=== PATIENT | female | born 1960 | race Caucasian/White ===

== ENCOUNTER 2017-06-02 05:44 | Emergency (ER) | payer OTHER, SELFPAY ==
[2017-06-02 05:45] VITALS: BP 181/119; PULSE 91; RESP 20; TEMP 36.7; O2SAT 97; BMI 49.6
--- NOTE | 2017-06-02 05:54 | RAD_ITS ---
STUDY: X-RAY - LEFT ANKLE REASON FOR EXAM: Female, 56 years old. Twisted ankle TECHNIQUE: 3 view(s) of the ankle. COMPARISON: None. FINDINGS: There is a small plantar calcaneal spur. No fractures or dislocations are seen. There is mild swelling of the ankle especially around the lateral malleolus. The ankle mortise and the subtalar joints are normal. RAD/Ankle min 3 Views IMPRESSION: All swelling about the ankle especially around the lateral malleolus. No fractures Electronically Signed: Jacinto Ludwig, at 6:44 EST Tel , Service support ,
[2017-06-02] MEDS: Ibuprofen 400 MG Tablet 800 MG PO (05:58)
--- NOTE | 2017-06-02 06:04 | ED.DCSUM_ITS ---
- ER Visit Summary Date of Service: 06/02/17 Chief Complaint: [] Left ankle injury History of Present Illness: The patient is a 56 F [] patient tripped on a step and rolled her ankle earlier today. She is having pain in the left ankle only. No home treatment. No previous injury. Physical Examination: Vital signs reviewed General: Well-nourished well-developed Head: Normocephalic atraumatic Eyes: Pupils equal round and reactive to light extraocular movements intact ENT: TMs clear no hemotympanum no trauma Neck: Nontender full range of motion Cardiovascular: Regular rate rhythm no murmurs normal S1-S2 Respiratory: No distress clear to auscultation bilaterally chest nontender Abdomen: Soft nontender nondistended normal bowel sounds no masses Back: Nontender no CVA tenderness Extremities: Palpation left lateral malleolus. Soft tissue swelling noted. Decreased range of motion secondary to pain. Skin: Normal color no trauma Neuro alert oriented cranial nerves II through XII intact normal strength sensation reflexes Test Results: [] Emergency Department Course and Treatment: [] She given ice pack and Motrin. X- ray obtained. Negative for fracture. At this time patient sprained her ankle. She has crutches at home. Given an Aircast. Will follow-up as an outpatient. Treatment Plan: [] Disposition: [] Impression: [] Left ankle sprain status post fall This note was generated with [employer] dictation software. It may contain incorrect words, spelling, and punctuation that were not noted in review of the chart prior to signing ED Disposition - Plan for ED Patient: Chief Complaint: Lower Extremity Injury Referrals: Rob Mcclure MD [Primary Care Provider] -
--- NOTE | 2017-06-02 06:22 | ED.DEP ---
ED Disposition - Plan for ED Patient: Disposition: Home or Assisted Living Chief Complaint: Lower Extremity Injury Instructions: ED Sprain Ankle W X Ray Referrals: Rob Mcclure MD [Primary Care Provider] -
[2017-06-02 06:35] VITALS: RESP 16
== END 2017-06-02 06:36 | disposition home or self-care (01) ==
PROVIDERS: Emergency Provider Emergency Medicine; Family Provider Family Medicine; PCP Family Medicine
DX: S93.402A Sprain of unspecified ligament of left ankle, initial encounter (principal); E66.9 Obesity, unspecified; E11.9 Type 2 diabetes mellitus without complications; I10 Essential (primary) hypertension; Z79.84 Long term (current) use of oral hypoglycemic drugs; Z79.899 Other long term (current) drug therapy; W18.40XA Slipping, tripping and stumbling without falling, unspecified, initial encounter; Y93.01 Activity, walking, marching and hiking; Y92.89 Other specified places as the place of occurrence of the external cause; Y99.8 Other external cause status
CPT/HCPCS: 73610; 99283

== ENCOUNTER → 2022-12-21 | Outpatient (CLI) | payer OTHER, SELFPAY | END | disposition home or self-care (01) | LOC: SL 12:50 | PROVIDERS: PCP Family Medicine; Visit Provider Physician Assistant | DX: G47.10 Hypersomnia, unspecified (principal) | CPT/HCPCS: 95806 ==

== ENCOUNTER → 2023-03-08 | Outpatient (CLI) | payer OTHER, SELFPAY | END | disposition home or self-care (01) | LOC: SL 13:47 | PROVIDERS: PCP Family Medicine; Visit Provider Physician Assistant | DX: Z00.00 Encounter for general adult medical examination without abnormal findings (principal) ==

== ENCOUNTER → 2023-04-07 | Outpatient (CLI) | payer OTHER, SELFPAY | END | disposition home or self-care (01) | LOC: SL 09:17 | PROVIDERS: PCP Family Medicine; Visit Provider Physician Assistant | DX: Z00.00 Encounter for general adult medical examination without abnormal findings (principal) ==

== ENCOUNTER 2024-06-26 08:51 | Inpatient (IN) | payer BC, SELFPAY ==
[2024-06-26] VITALS (18 sets, daily range): BP systolic 116–150; BP diastolic 58–98; PULSE 64–109; RESP 16–20; TEMP 35.6–37.1; O2SAT 73–100; BMI 46.2
--- NOTE | 2024-06-26 09:13 | CT_ITS ---
PROCEDURE: ABDOMEN/PELVIS W IV CONT ONLY REASON FOR EXAM: 4 day history of right lower quadrant pain. Nausea. TECHNIQUE: Abdomen and pelvis CT with intravenous contrast. IV CONTRAST: COMPARISON: None. FINDINGS: Coronary artery calcification. Lung bases: Calcified right hilar lymph nodes. Right lower lobe infiltrate. Liver: Fatty infiltration of the liver. Gallbladder: Unremarkable. Spleen: Calcified splenic granulomas. Pancreas: Unremarkable. Adrenals: Unremarkable. Kidneys: Unremarkable. Bladder: Unremarkable. Reproductive Organs: Unremarkable. Bowel: Unremarkable. Appendix: The appendix appears distended with a surrounding inflammatory process. Findings present are consistent with appendicitis. No evidence of abscess. Lymph nodes: No suspicious lymph node enlargement. Vasculature: Mild diffuse atherosclerotic calcifications are noted. Peritoneum / Retroperitoneum: No ascites. No free air. Bones: Degenerative changes of the spine. CT/Abdomen/Pelvis W IV Cont ONLY IMPRESSION: Findings in keeping with acute appendicitis. The results were communicated to the referring physician in the ER. Right lower lobe infiltration. One or more dose reduction techniques were used (e.g., Automated exposure contr ol, adjustment of the mA and/or kV according to patient size, use of iterative reconstruction technique). Reading Location: [facility]
--- NOTE | 2024-06-26 09:13 | ED.VIS.GI ---
HPI HPI - GI History of Present Illness Chief Complaint: Abd Pain Narrative Narrative: 63-year-old female past medical history of diabetes, hypertension presents with abdominal pain and right flank pain that she has had since Tuesday of last week, approximately 5 days ago. No prior abdominal surgeries. No fevers or chills but she has had nauseated without vomiting. No diarrhea, no dysuria or hematuria. No true exacerbating or alleviating factors. She states that she awoke on Tuesday morning in the middle the night feeling slightly chilled without rigors which resolved. She developed some right sided abdominal pain over the last few days. She took Tylenol/ibuprofen with mild relief of symptoms, but her pain has returned and is stronger today. Is mainly located on her right side, she states that radiates upwards and may be a little towards the front. [facility] Home Medications ?Medication ?Instructions ?Recorded ?Last Taken ?Type amlodipine 5 mg tablet 5 mg PO DAILY 06/02/17 06/25/24 History atorvastatin 20 mg tablet 20 mg PO QHS cholesterol 06/26/24 06/25/24 History hydrochlorothiazide 25 mg tablet 25 mg PO DAILY 06/26/24 06/25/24 History losartan 100 mg tablet 100 mg PO DAILY 06/26/24 06/25/24 History metformin 500 mg tablet,extended 500 mg PO BID 06/26/24 06/25/24 History release 24 hr varenicline tartrate 1 mg tablet 1 mg PO BID 06/26/24 Unknown History Allergy/AdvReac Type Severity Reaction Status Date / Time aspirin Allergy Shortness Verified 06/26/24 08:52 of breath Penicillins Allergy Rash Verified 06/26/24 08:52 Social History Smoking Status: Current every day smoker tobacco type: cigarettes ROS ROS ED ROS Narrative Constitutional: No fever, no chills currently. HEENT: No sore throat. No neck pain. No loss of vision. No rhinorrhea. Cardiovascular: No chest pain. No palpitations. No pedal edema. Respiratory: No cough, no shortness of breath. Abdominal: Right sided flank pain/right lower quadrant abdominal pain. Positive nausea. No vomiting. No problems with bowel movements. Genitourinary: No dysuria. No hematuria. Musculoskeletal: No myalgias. No arthralgias. EXAM Physical Exam Narrative Exam Narrative: Afebrile. Vital signs noted. Nontoxic-appearing. Positive dry mouth/dry mucous membranes cardiovascular examination reveals a mild tachycardia. Lungs are clear to auscultation bilaterally. Abdomen is soft with mild tenderness to palpation in the right lower quadrant. No epigastric or right upper quadrant tenderness, no rebound or guarding. Negative heel strike. Negative Rovsing sign. Neurological examination is nonfocal and nonlateralizing. Const Vital Signs: 06/26/24 08:51 06/26/24 10:51 06/26/24 12:17 Temperature 96.1 F L 98.7 F Temperature Source Temporal Temporal Pulse Rate 109 H 64 97 Respiratory Rate 20 H 18 16 Blood Pressure 140/87 H 138/78 H 116/96 H Blood Pressure Mean 104 98 102 Blood Pressure Source Blood Pressure Position Blood Pressure Location Pulse Ox 98 98 97 Oxygen Delivery Method Room Air Room Air Room Air 06/26/24 12:46 Temperature 98.4 F Temperature Source Oral Pulse Rate 97 Respiratory Rate 16 Blood Pressure 121/64 H Blood Pressure Mean 83 Blood Pressure Source Monitor Blood Pressure Position Semi-Fowlers Blood Pressure Location Right Arm Pulse Ox 96 Oxygen Delivery Method Room Air MDM MDM MDM Narrative Medical decision making narrative: Differential diagnosis includes but not limited to acute appendicitis versus ovarian cyst/ovarian pathology versus diverticulitis versus ureterolithiasis versus pyelonephritis. History and physical does not support diverticulitis or ureterolithiasis or pyelonephritis. I did offer her narcotic pain medication, but she declined currently. I do feel CT imaging is indicated. She will be bolused normal saline 1 L intravenously. I reviewed her laboratory work that has returned thus far. She has slight leukocytosis of 11.6. Hemoglobin normal at 12.2. I received a call from the radiologist and discussed the findings with him. She has an acute appendicitis without perforation or abscess. At this point in time, she was administered morphine and ondansetron for analgesia. Additionally, as she has an allergy to penicillin she was started on ciprofloxacin and Flagyl after discussion with Dr. Alba with general surgery. Disposition is admit to the OR. Patient is in stable condition. I did discuss the patient with Dr. Alba. Patient will need to be admitted to the medical surgical floor prior to her trip to the OR. Additionally, I did review her urinalysis and she has positive for WBCs and nitrites. Although she may have a UTI, she has already received ciprofloxacin intravenously. Disposition remains admitted in stable condition. History & Record Review Discussion w/independent historian: Patient Lab Data Attestation: I reviewed the patient's lab results. Labs: Laboratory Results - last 24 hr 06/26/24 06/26/24 06/26/24 09:25 09:25 09:25 WBC 11.6 H RBC 4.06 L Hgb 12.2 Hct 36.6 L MCV 90.1 MCH 30.0 MCHC 33.3 RDW Std Deviation 42.3 RDW Coeff of Tamie 12.9 Plt Count 385 MPV 10.7 Immature Gran % (Auto) 0.900 Neut % (Auto) 76.5 H Lymph % (Auto) 10.2 L [place] % (Auto) 11.2 H Eos % (Auto) 0.8 Baso % (Auto) 0.4 Absolute Neuts (auto) 8.9 H Absolute Lymphs (auto) 1.18 Nucleated RBC % 0 Sodium Cancelled Potassium Cancelled Chloride Cancelled Carbon Dioxide Cancelled Anion Gap Cancelled BUN Cancelled 22 H Creatinine Cancelled 1.0 Estim Creat Clear Calc Cancelled Est GFR (MDRD) Af Amer Est GFR (MDRD) Non-Af BUN/Creatinine Ratio Glucose Calcium Total Bilirubin AST ALT Alkaline Phosphatase Total Protein Albumin Globulin Albumin/Globulin Ratio Lipase Urine Color Urine Clarity Urine pH Ur Specific [place] Urine Protein Urine Glucose (UA) Urine Ketones Urine Occult Blood Urine Nitrite Urine Bilirubin Urine Urobilinogen Ur Leukocyte Esterase Urine RBC Urine WBC Ur Squamous Epith Cells Urine Bacteria Urine Mucus 06/26/24 06/26/24 06/26/24 09:25 09:25 09:25 WBC RBC Hgb Hct MCV MCH MCHC RDW Std Deviation RDW Coeff of Tamie Plt Count MPV Immature Gran % (Auto) Neut % (Auto) Lymph % (Auto) [place] % (Auto) Eos % (Auto) Baso % (Auto) Absolute Neuts (auto) Absolute Lymphs (auto) Nucleated RBC % Sodium Potassium Chloride Carbon Dioxide Anion Gap BUN Creatinine Estim Creat Clear Calc 65.49 Est GFR (MDRD) Af Amer Cancelled Est GFR (MDRD) Non-Af Cancelled 64 BUN/Creatinine Ratio Cancelled 22.0 H Glucose Cancelled Calcium Total Bilirubin AST ALT Alkaline Phosphatase Total Protein Albumin Globulin Albumin/Globulin Ratio Lipase Urine Color Urine Clarity Urine pH Ur Specific [place] Urine Protein Urine Glucose (UA) Urine Ketones Urine Occult Blood Urine Nitrite Urine Bilirubin Urine Urobilinogen Ur Leukocyte Esterase Urine RBC Urine WBC Ur Squamous Epith Cells Urine Bacteria Urine Mucus 06/26/24 06/26/24 06/26/24 09: 09: 09:25 WBC RBC Hgb Hct MCV MCH MCHC RDW Std Deviation RDW Coeff of Tamie Plt Count MPV Immature Gran % (Auto) Neut % (Auto) Lymph % (Auto) [place] % (Auto) Eos % (Auto) Baso % (Auto) Absolute Neuts (auto) Absolute Lymphs (auto) Nucleated RBC % Sodium Potassium Chloride Carbon Dioxide Anion Gap BUN Creatinine Estim Creat Clear Calc Est GFR (MDRD) Af Amer Est GFR (MDRD) Non-Af BUN/Creatinine Ratio Glucose 171 H Calcium Cancelled Total Bilirubin Cancelled 0.33 AST Cancelled 21 ALT Cancelled Alkaline Phosphatase Total Protein Albumin Globulin Albumin/Globulin Ratio Lipase Urine Color Urine Clarity Urine pH Ur Specific [place] Urine Protein Urine Glucose (UA) Urine Ketones Urine Occult Blood Urine Nitrite Urine Bilirubin Urine Urobilinogen Ur Leukocyte Esterase Urine RBC Urine WBC Ur Squamous Epith Cells Urine Bacteria Urine Mucus 06/26/24 06/26/24 06/26/24 09:25 09:25 09:25 WBC RBC Hgb Hct MCV MCH MCHC RDW Std Deviation RDW Coeff of Tamie Plt Count MPV Immature Gran % (Auto) Neut % (Auto) Lymph % (Auto) [place] % (Auto) Eos % (Auto) Baso % (Auto) Absolute Neuts (auto) Absolute Lymphs (auto) Nucleated RBC % Sodium Potassium Chloride Carbon Dioxide Anion Gap BUN Creatinine Estim Creat Clear Calc Est GFR (MDRD) Af Amer Est GFR (MDRD) Non-Af BUN/Creatinine Ratio Glucose Calcium Total Bilirubin AST ALT 19 Alkaline Phosphatase Cancelled 104 Total Protein Cancelled 7.8 Albumin Cancelled Globulin Albumin/Globulin Ratio Lipase Urine Color Urine Clarity Urine pH Ur Specific [place] Urine Protein Urine Glucose (UA) Urine Ketones Urine Occult Blood Urine Nitrite Urine Bilirubin Urine Urobilinogen Ur Leukocyte Esterase Urine RBC Urine WBC Ur Squamous Epith Cells Urine Bacteria Urine Mucus 06/26/24 06/26/24 06/26/24 09:25 09:25 09:25 WBC RBC Hgb Hct MCV MCH MCHC RDW Std Deviation RDW Coeff of Tamie Plt Count MPV Immature Gran % (Auto) Neut % (Auto) Lymph % (Auto) [place] % (Auto) Eos % (Auto) Baso % (Auto) Absolute Neuts (auto) Absolute Lymphs (auto) Nucleated RBC % Sodium Potassium Chloride Carbon Dioxide Anion Gap BUN Creatinine Estim Creat Clear Calc Est GFR (MDRD) Af Amer Est GFR (MDRD) Non-Af BUN/Creatinine Ratio Glucose Calcium Total Bilirubin AST ALT Alkaline Phosphatase Total Protein Albumin 3.7 Globulin Cancelled 4.1 Albumin/Globulin Ratio Cancelled 0.9 Lipase Cancelled Urine Color Urine Clarity Urine pH Ur Specific [place] Urine Protein Urine Glucose (UA) Urine Ketones Urine Occult Blood Urine Nitrite Urine Bilirubin Urine Urobilinogen Ur Leukocyte Esterase Urine RBC Urine WBC Ur Squamous Epith Cells Urine Bacteria Urine Mucus 06/26/24 10:30 WBC RBC Hgb Hct MCV MCH MCHC RDW Std Deviation RDW Coeff of Tamie Plt Count MPV Immature Gran % (Auto) Neut % (Auto) Lymph % (Auto) [place] % (Auto) Eos % (Auto) Baso % (Auto) Absolute Neuts (auto) Absolute Lymphs (auto) Nucleated RBC % Sodium Potassium Chloride Carbon Dioxide Anion Gap BUN Creatinine Estim Creat Clear Calc Est GFR (MDRD) Af Amer Est GFR (MDRD) Non-Af BUN/Creatinine Ratio Glucose Calcium Total Bilirubin AST ALT Alkaline Phosphatase Total Protein Albumin Globulin Albumin/Globulin Ratio Lipase Urine Color Straw Urine Clarity Sl. Cloudy Urine pH 7.0 Ur Specific [place] 1.005 Urine Protein 15 H Urine Glucose (UA) Normal Urine Ketones Negative Urine Occult Blood 25 H Urine Nitrite Positive H Urine Bilirubin Negative Urine Urobilinogen Normal Ur Leukocyte Esterase 500 H Urine RBC 0-5 SEEN Urine WBC 25-50 SEEN Ur Squamous Epith Cells 0-5 SEEN Urine Bacteria 2+ Urine Mucus 0 SEEN Radiography Diagnostic Testing: Clinical Impression(s) from Imaging Studies Abdomen/Pelvis CT 06/26/24 09:13 IMPRESSION: Findings in keeping with acute appendicitis. The results were communicated to the referring physician in the ER. Right lower lobe infiltration. One or more dose reduction techniques were used (e.g., Automated exposure control, adjustment of the mA and/or kV according to patient size, use of iterative reconstruction technique). Reading Location: [id number] Discharge Plan Dx/Rx/DC Orders Clinical Impression: Acute appendicitis, Right lower quadrant abdominal pain, Diabetes, Hypertension, UTI (urinary tract infection) Disposition Disposition: Acute Care Hospital [facility]
[2024-06-26] MEDS: 0.9% Normal Saline (1000mL) 1,000 ML 999 ML IV ×2 (09:35→10:46)
[2024-06-26 09:42] LABS: Absolute Lymphocyte Count 1.18 X10^3/uL (0.83-4.51); Absolute Neutrophil Count 8.9 X10^3/uL (2.0-7.7); Basophil# 0.05 X10^3/uL; Basophil% 0.4 % (0-1); Eosinophil# 0.09 X10^3/uL; Eosinophils% 0.8 % (0-5); Hematocrit 36.6 % (37-47); Hemoglobin 12.2 g/dL (12.0-15.0); Lymphocyte # 1.18 X10^3/ul (0.83-4.51); Lymphocyte % 10.2 % (19-41); Mean Corp Hgb Conc 33.3 g/dL (32-36); Mean Corpuscular Volume 90.1 fL (81-99); Mean Platelet Vol. 10.7 fl (6.2-12.0); Monocyte% 11.2 % (0-10); NRBC Flagged by Analyzer 0 % (0-5); Neutrophil # 8.85 X10^3/uL (2.7-7.7); Neutrophil % 76.5 % (47-70); Platelet Count 385 K/mm3 (150-450); RBC Distribution Width CV 12.9 % (11.6-14.6); RBC Distribution Width SD 42.3 fl (35.1-43.9); Red Blood Count 4.06 M/mm3 (4.2-5.4); White Blood Count 11.6 K/mm3 (4.4-11.0)
[2024-06-26] MEDS: Ondansetron 4 MG/2 ML Vial IV (10:45)
--- NOTE | 2024-06-26 10:45 | ED.RN ---
patient states unable to give urine sample.
[2024-06-26] MEDS: Morphine 4 MG/ML Syringe IV ×2 (10:46→12:43)
--- NOTE | 2024-06-26 10:54 | PCM.HP.STD ---
HPI - General General Date of Service: 06/26/24 HPI Narrative AMARJIT HANNA, is a 63 F who presents to the ER due to right lower quadrant pain. Patient states she has had pain since Tuesday however was able to take Advil and go to work on Tuesday and Tuesday. Patient states that on Tuesday the pain did get worse. Patient last ate at 1 AM had half of a hamburger. Patient had some nausea denies any vomiting. Patient CT abdomen pelvis consistent with acute appendicitis. Patient's never had any previous abdominal surgeries. COUNT INCLUDES THE [facility] Home Medications ?Medication ?Instructions ?Recorded ?Last Taken ?Type amlodipine 5 mg tablet 5 mg PO DAILY 06/02/17 06/25/24 History atorvastatin 20 mg tablet 20 mg PO QHS cholesterol 06/26/24 06/25/24 History hydrochlorothiazide 25 mg tablet 25 mg PO DAILY 06/26/24 06/25/24 History losartan 100 mg tablet 100 mg PO DAILY 06/26/24 06/25/24 History metformin 500 mg tablet,extended 500 mg PO BID 06/26/24 06/25/24 History release 24 hr varenicline tartrate 1 mg tablet 1 mg PO BID 06/26/24 Unknown History Allergy/AdvReac Type Severity Reaction Status Date / Time aspirin Allergy Shortness Verified 06/26/24 08:52 of breath Penicillins Allergy Rash Verified 06/26/24 08:52 Social History Smoking Status: Current every day smoker tobacco type: cigarettes Vital Signs Vital Signs Vital Signs: 06/26/24 08:51 06/26/24 10:51 Temperature 96.1 F L 98.7 F Temperature Source Temporal Temporal Pulse Rate 109 H 64 Respiratory Rate 20 H 18 Blood Pressure 140/87 H 138/78 H Blood Pressure Mean 104 98 Pulse Ox 98 98 Oxygen Delivery Method Room Air Room Air Weight Weight: 236 lb 8.896 oz Body Mass Index (BMI) 46.2 Physical Exam Const alert, oriented x3 and no apparent distress HEENT normocephalic and head/scalp atraumatic Resp normal respiratory effort Cardio regular rate GI soft to palpation; Negative for non-distended Palpation: tender RLQ; Negative for guarding Extremity no clubbing, cyanosis or edema Neuro CN's II-XII intact bilaterally Psych mental status grossly normal Results Lab / Micro Data 06/26/24 09:25 06/26/24 09:25 Labs: Laboratory Results - last 24 hr 06/26/24 09:25: WBC 11.6 H, RBC 4.06 L, Hgb 12.2, Hct 36.6 L, MCV 90.1, MCH 30.0, MCHC 33.3, RDW Std Deviation 42.3, RDW Coeff of Tamie 12.9, Plt Count 385, MPV 10.7, Immature Gran % (Auto) 0.900, Neut % (Auto) 76.5 H, Lymph % (Auto) 10.2 L, [place] % (Auto) 11.2 H, Eos % (Auto) 0.8, Baso % (Auto) 0.4, Absolute Neuts (auto) 8.9 H, Absolute Lymphs (auto) 1.18, Nucleated RBC % 0 Imaging Radiology Impression Abdomen/Pelvis CT 06/26/24 09:13 IMPRESSION: Findings in keeping with acute appendicitis. The results were communicated to the referring physician in the ER. Right lower lobe infiltration. One or more dose reduction techniques were used (e.g., Automated exposure control, adjustment of the mA and/or kV according to patient size, use of iterative reconstruction technique). Reading Location: [id number] Assessment & Plan Assessment/Plan (1) Acute appendicitis: PLAN: Plan 1. Discussed procedure laparoscopic appendectomy, possible open along with the risk but not limited to bleeding, infection/abscess, injury to another organ (small bowel, colon, etc.), adhesion, hernia at incision sites, and anesthesia. Patient no further question this time. Ingrid Alba M.D. Pager: [phone] [facility] [address] [place] [address], [address] [place] [address] Office: [phone]
[2024-06-26] MEDS: metroNIDAZOLE 500 MG/100 ML BAG 100 MG IV ×2 (11:10→19:07)
--- NOTE | 2024-06-26 11:26 | CASEMGMT ---
Addendum entered by Terra Ramos 06/26/24 19:13: Admitting diagnosis: appendicitis Other diagnosis history: diabetes, hypertension SHARDA Rios, SYED Original Note: Care Management Face to Face with patient for initial transition planning/care coordination assessment in the ED. This software writer introduced self and role at [facility]. Patient alert and oriented. Patient willing to participate in assessment and is able to answer all questions appropriately. Care providers, pharmacy, and demographics verified. Admitting Diagnosis: Other diagnosis history: PCP: Rob Mcclure Specialists: none Preferred Pharmacy: [facility] Insurance: [employer] Prescription Benefit: yes Living Will/HPOA: none, but would like to complete during admission. LNOK: [id number], Malena ( , no kids) Living Arrangements: patient lives alone in a ranch-style home, 1 step to enter, independent with all ADLs Transportation: patient drives DME: none HHC: none SNF/Rehab: none Community Resources: none Patient goals: Patient wishes to discharge home, denies need for home health care at this time. Patient denies any further needs or concerns at this time. Disposition Plan: admission to acute; RN CM/SW to follow for discharge planning needs that may arise. SHARDA Rios, SYED
[2024-06-26 12:19] LABS: Mucous, Urine 0 SEEN /hpf (<or=2+)
[2024-06-26 12:24] LABS: Color, Urine Straw (Yellow); Glucose, Dipstick Normal (Normal); Ketone-Dipstick Negative (Negative); Leukocyte Esterase-Dipstick 500 /ul (Negative); Nitrite-Dipstick Positive (Negative); Occult Blood-Urine 25 /ul (Negative); Protein-Dipstick 15 mg/dl (Negative); Specific Gravity, Urine 1.005 (1.002-1.030); Urine Bilirubin Dipstick Negative (Negative); Urine Clarity Sl. Cloudy (Clear); Urine Urobilinogen Normal (Normal)
[2024-06-26 12:27] LABS: Albumin, Serum 3.7 g/dL (3.4-4.8); EST Glomerular Filtration Rate 64 (>60); Estimated Creatinine Clearance 65.49 ml/min; Protein, Total 7.8 g/dL (5.9-8.4)
[2024-06-26] MEDS: Ciprofloxacin 400 MG/200 ML BAG 200 MG IV ×2 (12:29→22:14)
[2024-06-26 12:30] LABS: Bacteria 2+ /hpf (None Seen); Squamous Epithelial Cells - UA 0-5 SEEN /hpf (5-10); White Blood Cells 25-50 SEEN /hpf (0-5)
[2024-06-26 12:31] LABS: Red Blood Cells-Urine 0-5 SEEN /hpf (0-5)
[2024-06-26 12:50] LABS: ALB/GLOB Ratio 0.9 RATIO (0.9-2.4)
--- NOTE | 2024-06-26 13:43 | PCM.PRE.AN2 ---
ASA Classification* ASA Classification ASA Classification: 3 Assessment & Plan Anesthesia* Anesthesia Assessment Anesthesia Assessment: Discussed sedation and/or anesthesia options, risks, benefits, and alternatives with patient/parents/legal guardian/POA. Questions invited. The patient/parents/legal guardian/POA seems to understand and agrees to proceed with anesthesia plan. Reviewed the physical assessment, medical history, allergy history and patient home medications list prior to surgery/procedure/anesthetic and documented any changes. Performed airway and anesthesia risk assessments. Anesthesia Type Anesthesia Type: General History Source History Obtained from:: Patient and Chart Anesthesia Focused Assessment* Temperature: 98.4 F Pulse Rate: 97 Blood Pressure: 122/98 Respiratory Rate: 16 Pulse Ox: 94 Oxygen Delivery Method: Room Air Airway Assessment Mouth opens: >3 cm Mallampati Score: II Teeth Condition: Dentures (Full upper dentures are out.) and Partial (Lower partial is out.) Neck Range of motion (ROM): Limited ROM (somewhat decreased extension) Focused Labs Anesthesia Preop lab: CBC WBC 11.6 K/mm3 (4.4-11.0) H 06/26/24 09:25 06/26/24 RBC 4.06 M/mm3 (4.2-5.4) L 06/26/24 09:25 06/26/24 Hgb 12.2 g/dL (12.0-15.0) 06/26/24 09:25 06/26/24 Hct 36.6 % (37-47) L 06/26/24 09:25 06/26/24 Plt Count 385 K/mm3 (150-450) 06/26/24 09:25 06/26/24 CHEMISTRY Potassium 3.8 mmol/L (3.5-5.1) 03/08/12 17:20 03/08/12 Sodium 137 mmol/L (136-145) 03/08/12 17:20 03/08/12 BUN 22 mg/dL (4-19) H 06/26/24 09:25 06/26/24 Creatinine 1.0 mg/dL (0.6-1.0) 06/26/24 09:25 06/26/24 Glucose 171 mg/dL (70-99) H 06/26/24 09:25 06/26/24 COAG Pre-Assessment Diagnosis/Proposed Procedure Planned Operative Procedure(s): Laparoscopic appendectomy. Anesthesia History Anesthesia History - medical policy specialist: Anesthesia History - medical policy specialist Hx Hospitalization Any Problems With Anesthesia No 06/26/24 12:46 Cholinesterase deficiency You/Your Family Experience fever (hyperthermia) with Relationship Recent Exposure to Contagious Disease Does patient have nerve No 06/26/24 12:46 stimulator Patient instructed to have device shut off --Does patient have Pacemaker or ICD? When Was Last Pacemaker Check QUESTION #4 FULL TEXT: You/Your Family Experience fever (hyperthermia) with Anesthesia Last Oral Intake Last Oral intake: Last Oral Intake NPO since 08:00 06/26/24 12:46 Meds taken in AM with sips of water? Meds patient instructed to take am of surgery Any additional information?: Yes NPO since: 08:00 (Patient had diet Coke 8 AM.) PONV PONV - medical policy specialist: PONV - medical policy specialist Female HX of Motion Sickness HX of N/V After Surgery Non-Smoker Duration of Surgery greater than 60 minutes Number of Risk Factors PONV Score Height & Weight Height & Weight: Anesthesia: Height & Weight Height 5 ft 06/26/24 12:46 Weight: 107.3 kg 06/26/24 12:46 Body Mass Index (BMI) 46.2 06/26/24 12:46 Respiratory Assessment Respiratory Assessment - medical policy specialist: Respiratory Tract Infection Hx - medical policy specialist Hx Respiratory Tract Infection Any additional information?: Yes Hx Respiratory Tract Infection: Yes (had viral infection about 2 weeks ago. Has been clear for about a week.) STOP Sleep Apnea STOP Sleep Apnea - medical policy specialist: STOP Sleep Apnea - medical policy specialist Hx Hypertension Yes 06/26/24 12:46 Hx Sleep Apnea Yes 06/26/24 12:46 CPAP Yes 06/26/24 12:46 BIPAP No 06/26/24 12:46 Do you snore loudly (louder than talking or can be heard Do you often feel tired/ fatigued/ sleepy during daytime? Has anyone observed you stop breathing during sleep? STOP Results Positive 06/26/24 12:46 QUESTION #5 FULL TEXT : Do you snore loudly (louder than talking or can be heard through closed doors)? Tobacco Use History Tobacco Use History - medical policy specialist: Tobacco Use History - medical policy specialist Tobacco Use Cigarettes 09/15/22 13:07 Smoking Status Current every day smoker 06/26/24 09:00 Hx Tobacco Use Yes 06/02/17 05:47 Years Smoking Packs Smoked per Day Smoking Cessation Date was within the last 15 years Hx Smoking Cessation Date Hx Smoking Cessation Counseling Any additional information?: Yes Smoking Status: Current every day smoker (Patient smoked today.) Hematologic Medial History Hematologic Hx - medical policy specialist: Hematologic Medical Hx - loan documentation specialist Hx of Blood Transfusion Hx of Transfusion in last 3 Months Date of Last Transfusion (if within last 3 months) Ever experience any problems with transfusion(s)? Specify any problems Hx of Preganancy in last 3 Months Nurse Filling Out Transfusion & Questions: Date: Time: Patient unable to answer at this time (ie. confused, unrespo /Reproduction History /Reproductive History - medical policy specialist: /Reproductive Hx- medical policy specialist Hx Now Gestational Age (in weeks): EDC: Hx Hx Para Hx Section SAB PFSH Home Medications ?Medication ?Instructions ?Recorded ?Last Taken ?Type amlodipine 5 mg tablet 5 mg PO DAILY 06/02/17 06/25/24 History atorvastatin 20 mg tablet 20 mg PO QHS cholesterol 06/26/24 06/25/24 History hydrochlorothiazide 25 mg tablet 25 mg PO DAILY 06/26/24 06/25/24 History losartan 100 mg tablet 100 mg PO DAILY 06/26/24 06/25/24 History metformin 500 mg tablet,extended 500 mg PO BID 06/26/24 06/25/24 History release 24 hr varenicline tartrate 1 mg tablet 1 mg PO BID 06/26/24 Unknown History Allergy/AdvReac Type Severity Reaction Status Date / Time aspirin Allergy Shortness Verified 06/26/24 08:52 of breath Penicillins Allergy Rash Verified 06/26/24 08:52 Surgical History (Updated 06/26/24 @ 13:[address] Juni Jurado MD) History of tonsillectomy Social History Smoking Status: Current every day smoker tobacco type: cigarettes Review of Systems (Anesthesia) ROS Narrative System reviewed and no additional complaints, except as documented.
[2024-06-26] MEDS: Bupiv/Epi 0.25% 30 ML Vial (15:49)
--- NOTE | 2024-06-26 15:54 | PCM.OPRPT ---
Operative Report (Standard) Operative Information Date of Procedure: 06/26/24 Pre-Operative Diagnosis: Acute appendicitis Post-Operative Diagnosis: Perforated acute appendicitis Surgery/Procedure Performed: Laparoscopic appendectomy cook sauce: Yes Registrar Nurses' Registry: Sergio Priest Tasks completed by mailroom assistant: Closing and Retracting Additional expanded duty dental assistant?: No Type of Anesthesia: General/Supplemental RN Documented Start/Stop Times: Operation Date: 06/26/24 16:20 Case Time Into Pre-Op 06/26/24 13:17 Anesthesia Start 06/26/24 14:02 Into Room 06/26/24 14:02 Procedure Start 06/26/24 14:22 Procedure End 06/26/24 16:00 Anesthesia End 06/26/24 16:09 Out of Room 06/26/24 16:09 Into Recovery 06/26/24 16:12 Out of Recovery 06/26/24 17:01 Into Phase II Recovery Procedure Start Time: 14:22 Procedure Stop Time: 16:00 Select all DRAINS/GRAFTS/IMPLANTS that apply: Drains Drain details: 15 Icelandic round KELLY Special Medications: Cipro/Flagyl IV for acute appendicitis Estimated Blood Loss: 20 cc Specimen collected: Yes Description of specimen(s) removed: appendix Description of surgery: Indications: 63-year-old female presented to the ER with new right lower quadrant pain this morning. On workup she was found to have acute appendicitis on CT and a leukocytosis of 11.5. Patient was started on antibiotics in the ER for acute appendicitis-Cipro 40 mg IV x 1 and Flagyl 500 mg IV x 1 Description of the procedure: The patient was placed on operating table in supine position. General anesthesia was induced. A timeout was completed verifying correct patient, procedure, position and special equipment prior to beginning procedure. Abdomen was prepped and draped in usual sterile fashion. Incision was made in the natural skin line above the umbilicus with a 15 blade scalpel. The fascia was elevated and incised. Entry into the peritoneum was confirmed visually and no bowel was noted in the vicinity of the incision. The Petersen trocar was placed under direct vision. Abdomen insufflated with a pressure of 12-15 mmHg. Patient tolerated insertion well. The scope was inserted and the abdomen inspected. No injuries from initial trocar placement were noted. Minimal amount of fluid was seen in the right lower quadrant. An direct visualization 2 -5 mm trocars were placed one above the symphysis pubis and below the hairline and one in the left lower quadrant lateral to the rectus muscle. Care is taken to avoid injury to the bladder and inferior epigastric vessels. The table was placed in Trendelenburg position with the right side elevated. There are density stones in the right lower quadrant with inflammation extending to the abdominal wall. Careful blunt dissection showed some purulent fluid which was suctioned and sent for culture. Additional 5 mm trocars placed in the right upper quadrant. After carefully terminal ileum from cecum/appendix. Was able to find the appendix and follow it down to its tip. This was followed back up to the base of the cecum. Enseal was used to divide the mesoappendix. The appendix was grasped with atraumatic grasper and elevated. It was noted to be inflamed with purulent drainage. A window was developed in the mesoappendix at the point between the base of the appendix and the cecum. An endoscopic 45 mm linear cutting stapler blue load was then used to divide and staple the base of the appendix. The appendix was withdrawn into the Petersen trocar after being placed endoscopically retrieval bag. Appendix was sent to pathology. The appendiceal stump was then irrigated and hemostasis was assured. Fluid was suctioned no other pathology was identified. 15 Icelandic round KELLY was placed into the pelvis coursing to the right lower quadrant. Secondary trochars were removed under direct visualization. No bleeding was noted trocar sites. The laparoscope withdrawn and the umbilical trocar removed. The abdomen was allowed to collapse. Local anesthesia of 30 mL of 0.25% Marcaine was used at the incision sites. The umbilical trocar site was closed with the [id number] 0 Vicryl suture. The skin was closed using sutures of 4-0 Monocryl and Steri-Strips. The patient was extubated. The patient tolerated the procedure well and was taken to the postanesthesia care unit in satisfactory condition. Surgical Findings: Acute perforated appendicitis Complications Complications: No
[2024-06-26 15:56] LABS: Calcium,Total 9.3 mg/dL (7.6-11.0); Potassium 3.6 mmol/L (3.5-5.1); Sodium Level 130 mmol/L (136-145)
[2024-06-26 15:57] LABS: Anion Gap 17 (5-15); Carbon Dioxide 23.4 mmol/L (21.0-32.0); Chloride 90 mmol/L (98-107)
[2024-06-26 16:00] LABS: AST(SGOT) 22 U/L (<=31); Alanine Aminotransfer ALT/SGPT 21 U/L (<=34); Alkaline Phosphatase 102 U/L (35-104); BUN 23 mg/dL (4-19); BUN/Creat Ratio 22.6 RATIO (10-20); Globulin 4.2 g/dL (2.2-4.2); Glucose 164 mg/dL (70-99); Total Bilirubin 0.29 mg/dL (0.00-1.30)
--- NOTE | 2024-06-26 16:16 | PCM.POST.ANE ---
Anesthesia: Postop Eval I Current Vital Signs Temperature: 97 F Pulse Rate: 88 Blood Pressure: 132/64 Respiratory Rate: 16 Pulse Ox: 100 Oxygen Delivery Method: Room Air Assessment Airway patent: Yes Spontaneous unlabored respirations: Yes Mental status: Awake and Calm nausea: No Vomiting: No Anesthesia Complication: No Fluid Hydration Crystalloid volume administer (ml): 1,000 Total IV fluid infused: 1,000 Progress Note Anesthesia document: Postop Eval 1 completed: Yes
--- NOTE | 2024-06-26 16:30 | APP_PTH ---
PATIENT: AMARJIT HANNA LOC: MS3 U#:[id number] AGE/SX: 63/F ROOM: [facility] [place] RE06/28/[address]: Dr. Ingrid Alba MD : 1960 BED: 1 DIS: 07/01/2024 SPEC #: [id number] RECD: 06/26/24 17:03 STATUS: SHANNA KIRBY #: [id number] JANELL: 06/26/24 16:[address]: Ingrid Alba DEPT: SURGICAL PATHOLOGY RECD BY: Richard Bejarano ENTERED: 06/27/24 08:39 SP TYPE: APPENDIX OTHR DR: Dr. Rob Mcclure MD Tissues: Appendix, NOS Procedures: Surgery Specimen Level III HEADER OPERATION: Laparoscopic appendectomy PRE-OP DIAGNOSIS: Acute appendicitis TISSUE SUBMITTED: Appendix MICROSCOPIC DIAGNOSIS Appendix, appendectomy: Acute appendicitis and periappendicitis. See mariana. 06/28/2024 COMMENT This case has been reviewed in consultation with Dr. Hunt who concurs with the above diagnosis. IDC:[id number] MICROSCOPIC DESCRIPTION Slides are reviewed. GROSS DESCRIPTION Received in fixative is one container labeled with the patient's name and designated appendix. The specimen consists of an appendix measuring 5.5 cm in length and up to 0.8 cm in diameter. The attached periappendiceal adipose tissue measures up to 1.7 cm in width. The serosa is congested. No obvious perforation is identified. The lumen is almost completely obliterated. No fecalith is identified. Traffic Operations Engineer sections are submitted in one cassette. / SJ: 06/27/2024 TC:2 CPT: [id number]
--- NOTE | 2024-06-26 19:03 | POSTOPAN2_ITS ---
Anesthesia Postop Eval I Sum Postop Eval Completion status Anesthesia document: Postop Eval 1 completed: Yes Anesthesia Postop Eval I Summary Anesthesia Postop Eval I Summary: Anesthesia Postop Eval I: Assessment Summary Airway patent Yes 06/26/24 16:16 MANUFACTURER'S SERVICE REPRESENTATIVE.[email or web address] Spontaneous unlabored Yes 06/26/24 16:16 MANUFACTURER'S SERVICE REPRESENTATIVE.[email or web address] respirations Mental status Awake,Calm 06/26/24 16:16 MANUFACTURER'S SERVICE REPRESENTATIVE.[email or web address] nausea No 06/26/24 16:16 MANUFACTURER'S SERVICE REPRESENTATIVE.[email or web address] Vomiting No 06/26/24 16:16 MANUFACTURER'S SERVICE REPRESENTATIVE.[email or web address] Anesthesia Postop Eval I: Fluid Summary Crystalloid volume administer 1,000 06/26/24 16:16 MANUFACTURER'S SERVICE REPRESENTATIVE.[email or web address] (ml) Colloids volume administered ( ml) Blood Product volume administered (ml) Total IV fluid infused 1,000 06/26/24 16:16 MANUFACTURER'S SERVICE REPRESENTATIVE.[email or web address] Anesthesia Postop Eval I: Summary Notes Anesthesia Complication No 06/26/24 16:16 MANUFACTURER'S SERVICE REPRESENTATIVE.[email or web address] Anesthesia Complication Comment: Post-operative progress note Anesthesia: Postop Eval II Evaluation Mental status: Awake and Calm Pain Level: 1 nausea: No Vomiting: No Complications Anesthesia Complication: No
--- NOTE | 2024-06-26 19:03 | PCM.POSTANE2 ---
Anesthesia Postop Eval I Sum Postop Eval Completion status Anesthesia document: Postop Eval 1 completed: Yes Anesthesia Postop Eval I Summary Anesthesia Postop Eval I Summary: Anesthesia Postop Eval I: Assessment Summary Airway patent Yes 06/26/24 16:16 FIBER HEEL PIECE SHAPER.[email or web address] Spontaneous unlabored Yes 06/26/24 16:16 FIBER HEEL PIECE SHAPER.[email or web address] respirations Mental status Awake,Calm 06/26/24 16:16 FIBER HEEL PIECE SHAPER.[email or web address] nausea No 06/26/24 16:16 FIBER HEEL PIECE SHAPER.[email or web address] Vomiting No 06/26/24 16:16 FIBER HEEL PIECE SHAPER.[email or web address] Anesthesia Postop Eval I: Fluid Summary Crystalloid volume administer 1,000 06/26/24 16:16 FIBER HEEL PIECE SHAPER.[email or web address] (ml) Colloids volume administered ( ml) Blood Product volume administered (ml) Total IV fluid infused 1,000 06/26/24 16:16 FIBER HEEL PIECE SHAPER.[email or web address] Anesthesia Postop Eval I: Summary Notes Anesthesia Complication No 06/26/24 16:16 FIBER HEEL PIECE SHAPER.[email or web address] Anesthesia Complication Comment: Post-operative progress note Anesthesia: Postop Eval II Evaluation Mental status: Awake and Calm Pain Level: 1 nausea: No Vomiting: No Complications Anesthesia Complication: No
[2024-06-26 19:30] LABS: Bedside Glucose 172 mg/dL (74-106)
[2024-06-26] MEDS: Acetaminophen 325 MG Tablet 650 MG PO (20:02)
[2024-06-26] MEDS: Insulin Lispro 100 UNIT/ML INSULN.PEN SC (22:13)
[2024-06-26] MEDS: Atorvastatin Calcium 20 MG Tablet PO (22:14)
[2024-06-26 22:33] LABS: Bedside Glucose 266 mg/dL (74-106)
[2024-06-27] VITALS (8 sets, daily range): BP systolic 111–140; BP diastolic 56–77; PULSE 78–96; RESP 16–20; TEMP 36.6–37.1; O2SAT 86–100
--- NOTE | 2024-06-27 03:18 | NURSING ---
Pt walked in the dubose with the material combiner.
[2024-06-27] MEDS: metroNIDAZOLE 500 MG/100 ML BAG 100 MG IV ×3 (06:11→22:11)
[2024-06-27] MEDS: Acetaminophen 325 MG Tablet 650 MG PO ×2 (06:14→16:42)
[2024-06-27 06:49] LABS: Bedside Glucose 144 mg/dL (74-106)
[2024-06-27 07:44] LABS: Absolute Lymphocyte Count 1.29 X10^3/uL (0.83-4.51); Absolute Neutrophil Count 11.2 X10^3/uL (2.0-7.7); Basophil# 0.03 X10^3/uL; Basophil% 0.2 % (0-1); Hematocrit 32.5 % (37-47); Hemoglobin 10.3 g/dL (12.0-15.0); Lymphocyte # 1.29 X10^3/ul (0.83-4.51); Mean Corp Hgb Conc 31.7 g/dL (32-36); Mean Corpuscular Hgb 29.2 pg (27.0-32.0); Mean Corpuscular Volume 92.1 fL (81-99); Mean Platelet Vol. 10.9 fl (6.2-12.0); Monocyte% 11.9 % (0-10); NRBC Flagged by Analyzer 0 % (0-5); Neutrophil % 78.2 % (47-70); POSITIVE DIFFERENTIAL YES; Platelet Count 303 K/mm3 (150-450); RBC Distribution Width CV 13.2 % (11.6-14.6); RBC Distribution Width SD 44.4 fl (35.1-43.9); Red Blood Count 3.53 M/mm3 (4.2-5.4); White Blood Count 14.3 K/mm3 (4.4-11.0)
[2024-06-27 07:56] LABS: Differential Indicated SCAN CRITERIA MET
--- NOTE | 2024-06-27 08:21 | PN.SURG_ITS ---
Subjective Subjective Patient evaluated resting comfortably in bed. She denies any abdominal pain, nausea, vomiting. She denies any flatus. She is tolerating clear liquids. She notes difficulty with urination and had to be straight cathed x 2 over night. She did have incontinence of urine this morning. She notes her other concern is her residual wheezing and shortness of breath from a recent viral infection 2 weeks ago. She is currently on O2, however not on oxygen at home. Objective Data Objective Data Vital Signs: Vital Signs Temp Pulse Resp BP Pulse Ox O2 Del Method O2 Flow Rate 98.1 F 78 18 111/71 97 Room Air 3 06/27/24 05:47 06/27/24 05:47 06/27/24 05:47 06/27/24 05:47 06/27/24 05:47 06/27/24 05:47 06/26/24 22:08 Oxygen Flow Rate (L/min) 3 Oxygen Delivery Method Room Air Weight: 236 lb 8.896 oz Body Mass Index (BMI) 46.2 Intake & Output: Intake and Output for Last 24 Hours 06/25/24 06/26/24 06/27/24 23:59 23:59 23:59 Intake Total 3000 / 3000 400 / 400 Output Total 530 / 530 570 / 570 Balance 2470 / 2470 -170 / -170 Lab / Micro Data 06/27/24 07:00 06/27/24 07:00 Labs: Laboratory Results - last 24 hr 06/26/24 09:25: WBC 11.6 H, RBC 4.06 L, Hgb 12.2, Hct 36.6 L, MCV 90.1, MCH 30.0, MCHC 33.3, RDW Std Deviation 42.3, RDW Coeff of Tamie 12.9, Plt Count 385, MPV 10.7, Immature Gran % (Auto) 0.900, Neut % (Auto) 76.5 H, Lymph % (Auto) 10.2 L, [place] % (Auto) 11.2 H, Eos % (Auto) 0.8, Baso % (Auto) 0.4, Absolute Neuts (auto) 8.9 H, Absolute Lymphs (auto) 1.18, Nucleated RBC % 0, Sodium Cancelled 06/26/24 09:25: Sodium 130 L, Potassium Cancelled 06/26/24 09:25: Potassium 3.6, Chloride Cancelled 02/25/25 09:25: Chloride 90 L, Carbon Dioxide Cancelled 06/26/24 09:25: Carbon Dioxide 23.4, Anion Gap Cancelled 06/26/24 09:25: Anion Gap 17 H, BUN Cancelled 06/26/24 09:25: BUN 23 H, Creatinine Cancelled 06/26/24 09:25: Creatinine 1.0, Estim Creat Clear Calc Cancelled 06/26/24 09:25: Estim Creat Clear Calc 65.49, Est GFR (MDRD) Af Amer Cancelled, Est GFR (MDRD) Non-Af Cancelled 06/26/24 09:25: Est GFR (MDRD) Non-Af 64, BUN/Creatinine Ratio Cancelled 06/26/24 09:25: BUN/Creatinine Ratio 22.6 H, Glucose Cancelled 06/26/24 09:25: Glucose 164 H, Calcium Cancelled 06/26/24 09:25: Calcium 9.3, Total Bilirubin Cancelled 06/26/24 09:25: Total Bilirubin 0.29, AST Cancelled 06/26/24 09:25: AST 22, ALT Cancelled 06/26/24 09:25: ALT 21, Alkaline Phosphatase Cancelled 06/26/24 09:25: Alkaline Phosphatase 102, C-React Prot Ext Range 173.00 H, Total Protein Cancelled 06/26/24 09:25: Total Protein 7.8, Albumin Cancelled 06/26/24 09:25: Albumin 3.7, Globulin Cancelled 06/26/24 09:25: Globulin 4.2, Albumin/Globulin Ratio Cancelled 06/26/24 09:25: Albumin/Globulin Ratio 0.9, Lipase Cancelled 06/26/24 10:30: Urine Color Straw, Urine Clarity Sl. Cloudy, Urine pH 7.0, Ur Specific Warren 1.005, Urine Protein 15 H, Urine Glucose (UA) Normal, Urine Ketones Negative, Urine Occult Blood 25 H, Urine Nitrite Positive H, Urine Bilirubin Negative, Urine Urobilinogen Normal, Ur Leukocyte Esterase 500 H, Urine RBC 0-5 SEEN, Urine WBC 25-50 SEEN, Ur Squamous Epith Cells 0-5 SEEN, Urine Bacteria 2+, Urine Mucus 0 SEEN 06/26/24 18:13: POC Glucose 172 H 06/26/24 22:12: POC Glucose 266 H 06/27/24 06:31: POC Glucose 144 H 06/27/24 07:00: WBC 14.3 H, RBC 3.53 L, Hgb 10.3 L, Hct 32.5 L, MCV 92.1, MCH 29.2, MCHC 31.7 L, RDW Std Deviation 44.4 H, RDW Coeff of Tamie 13.2, Plt Count 303, MPV 10.9, Immature Gran % (Auto) 0.700, Neut % (Auto) 78.2 H, Lymph % (Auto) 9.0 L, [place]ord % (Auto) 11.9 H, Eos % (Auto) 0.0, Baso % (Auto) 0.2, A bsolute Neuts (auto) 11.2 H, Absolute Lymphs (auto) 1.29, Nucleated RBC % 0 Radiography Diagnostic Testing: Radiology Impression Abdomen/Pelvis CT 06/26/24 09:13 IMPRESSION: Findings in keeping with acute appendicitis. The results were communicated to the referring physician in the ER. Right lower lobe infiltration. One or more dose reduction techniques were used (e.g., Automated exposure control, adjustment of the mA and/or kV according to patient size, use of iterative reconstruction technique). Reading Location: [id number] Physical Exam GI GI Narrative: Abdomen- soft, obese, KELLY drain with serosanguineous fluid noted. Incisions c/d/i. Abdomen non-tender to palpation. Hypoactive bowel sounds. Assessment & Plan Assessment/Plan (1) Acute appendicitis: QUALIFIERS: Acute appendicitis type: with localized peritonitis A ppendicitis abscess presence: without abscess Appendicitis gangrene presence: w ithout gangrene Appendicitis perforation presence: with perforation Qualified Code(s): K35.32 - Acute appendicitis with perforation, localized peritonitis, and gangrene, without abscess PLAN: I am following this patient in conjunction with Dr. Alba. She will independently evaluate this patient. Labs reviewed. WBC increased Continue IV antibiotics Duoneb ordered for continued wheezing from recent viral illness Increase diet to full liquids. Will hold diet there until patient passes flatus Encourage ambulation and I.S. Wean off O2 Keep KELLY intact Probable discharge tomorrow We will continue to monitor this patient Charges/Coding Visit Charges Inpatient E&M: 63125 Subs Hosp L1 (no charge; post-op)
[2024-06-27 09:28] LABS: Anion Gap 13 (5-15); BUN 18 mg/dL (4-19); BUN/Creat Ratio 17.6 RATIO (10-20); Calcium 8.4 mg/dL (7.6-11.0); Carbon Dioxide 23.6 mmol/L (22.0-29.0); Chloride 92 mmol/L (96-108); EST Glomerular Filtration Rate 64 (>60); Estimated Creatinine Clearance 65.49 ml/min; Glucose 146 mg/dL (70-99); Magnesium 2.5 mg/dL (1.5-2.2); Phosphorus 3.9 mg/dL (2.7-4.5); Potassium 4.1 mmol/L (3.3-5.1); Sodium Level 129 mmol/L (133-145)
[2024-06-27] MEDS: Ciprofloxacin 400 MG/200 ML BAG 200 MG IV ×2 (10:01→21:00)
[2024-06-27] MEDS: Losartan Potassium 100 MG Tablet PO (10:01)
[2024-06-27] MEDS: hydroCHLOROthiazide 25 MG Tablet PO (10:01)
[2024-06-27] MEDS: Ipratropium/Albuterol Sulfate 3 ML AMPUL.NEB INHALATION (10:15)
[2024-06-27 12:22] LABS: Bedside Glucose 138 mg/dL (74-106)
[2024-06-27 13:35] LABS: Pathologist Review Reviewed
[2024-06-27 17:35] LABS: Bedside Glucose 136 mg/dL (74-106)
[2024-06-27] MEDS: oxyCODONE 5 MG Tablet PO (18:00)
[2024-06-27] MEDS: Atorvastatin Calcium 20 MG Tablet PO (21:01)
[2024-06-27] MEDS: Ondansetron 4 MG/2 ML Vial IV (22:11)
[2024-06-27 23:29] LABS: Bedside Glucose 143 mg/dL (74-106)
[2024-06-28 04:00] VITALS: BP 113/53; PULSE 83; RESP 18; TEMP 36.5; O2SAT 97
[2024-06-28] MEDS: metroNIDAZOLE 500 MG/100 ML BAG 100 MG IV ×2 (06:33→15:08)
[2024-06-28] MEDS: Insulin Lispro 100 UNIT/ML INSULN.PEN SC ×3 (06:33→21:40)
[2024-06-28 07:04] LABS: Bedside Glucose 151 mg/dL (74-106)
[2024-06-28 07:05] LABS: Absolute Lymphocyte Count 1.82 X10^3/uL (0.83-4.51); Absolute Neutrophil Count 7.4 X10^3/uL (2.0-7.7); Basophil# 0.06 X10^3/uL; Basophil% 0.5 % (0-1); Eosinophil# 0.09 X10^3/uL; Eosinophils% 0.8 % (0-5); Hematocrit 32.5 % (37-47); Hemoglobin 10.5 g/dL (12.0-15.0); Lymphocyte # 1.82 X10^3/ul (0.83-4.51); Lymphocyte % 16.3 % (19-41); Mean Corp Hgb Conc 32.3 g/dL (32-36); Mean Corpuscular Hgb 29.3 pg (27.0-32.0); Mean Corpuscular Volume 90.8 fL (81-99); Mean Platelet Vol. 10.2 fl (6.2-12.0); Monocyte# 1.64 X10^3/uL; Monocyte% 14.7 % (0-10); NRBC Flagged by Analyzer 0 % (0-5); Neutrophil # 7.39 X10^3/uL (2.7-7.7); Neutrophil % 66.4 % (47-70); POSITIVE DIFFERENTIAL YES; POSITIVE MORPHOLOGY YES; Platelet Count 412 K/mm3 (150-450); RBC Distribution Width CV 12.9 % (11.6-14.6); RBC Distribution Width SD 42.9 fl (35.1-43.9); Red Blood Count 3.58 M/mm3 (4.2-5.4); White Blood Count 11.1 K/mm3 (4.4-11.0)
[2024-06-28 07:07] LABS: Differential Indicated SCAN CRITERIA MET
[2024-06-28 07:40] LABS: Anion Gap 10 (5-15); BUN 10 mg/dL (4-19); BUN/Creat Ratio 11.4 RATIO (10-20); Calcium 8.5 mg/dL (7.6-11.0); Carbon Dioxide 27.5 mmol/L (22.0-29.0); Chloride 95 mmol/L (96-108); Creatinine, Serum 0.9 mg/dL (0.6-1.0); EST Glomerular Filtration Rate 77 (>60); Estimated Creatinine Clearance 72.77 ml/min; Glucose 143 mg/dL (70-99); Potassium 3.7 mmol/L (3.3-5.1); Sodium Level 132 mmol/L (133-145)
--- NOTE | 2024-06-28 07:48 | PCM.PN.SRG ---
Subjective Subjective Patient evaluated resting comfortably in the chair. She notes abdominal discomfort/incisional discomfort. She denies flatus or BM. She notes activity feeling within her system. She states increased tenderness may be due to gas related pain. She denies nausea, vomiting, fever overnight. Objective Data Objective Data Vital Signs: Vital Signs Temp Pulse Resp BP Pulse Ox O2 Del Method O2 Flow Rate 97.7 F L 83 18 113/53 L 97 Nasal Cannula 2 06/28/24 04:00 06/28/24 04:00 06/28/24 04:00 06/28/24 04:00 06/28/24 04:00 06/28/24 04:00 06/28/24 04:00 Oxygen Flow Rate (L/min) 2 Oxygen Delivery Method Nasal Cannula Weight: 236 lb 8.896 oz Body Mass Index (BMI) 46.2 Intake & Output: Intake and Output for Last 24 Hours 06/26/24 06/27/24 06/28/24 23:59 23:59 23:59 Intake Total 3000 / 3000 3100 / 3100 Output Total 530 / 530 4430 / 4430 2195 / 2195 Balance 2470 / 2470 -1330 / -1330 -2195 / -2195 Lab / Micro Data 06/28/24 06:27 06/28/24 06:27 Labs: Laboratory Results - last 24 hr 06/27/24 07:00: WBC 14.3 H, RBC 3.53 L, Hgb 10.3 L, Hct 32.5 L, MCV 92.1, MCH 29.2, MCHC 31.7 L, RDW Std Deviation 44.4 H, RDW Coeff of Tamie 13.2, Plt Count 303, MPV 10.9, Immature Gran % (Auto) 0.700, Neut % (Auto) 78.2 H, Lymph % (Auto) 9.0 L, [place] % (Auto) 11.9 H, Eos % (Auto) 0.0, Baso % (Auto) 0.2, Absolute Neuts (auto) 11.2 H, Absolute Lymphs (auto) 1.29, Nucleated RBC % 0, Diff Path Review Reviewed, Sodium 129 L, Potassium 4.1, Chloride Direct 92 L, Carbon Dioxide 23.6, Anion Gap 13, BUN 18, Creatinine 1.0, Estim Creat Clear Calc 65.49, Est GFR (MDRD) Non-Af 64, BUN/Creatinine Ratio 17.6, Glucose 146 H, Calcium 8.4, Phosphorus 3.9, Magnesium 2.5 H 06/27/24 11:35: POC Glucose 138 H 06/27/24 16:39: POC Glucose 136 H 06/27/24 20:57: POC Glucose 143 H 06/28/24 06:27: WBC 11.1 H, RBC 3.58 L, Hgb 10.5 L, Hct 32.5 L, MCV 90.8, MCH 29.3, MCHC 32.3, RDW Std Deviation 42.9, RDW Coeff of Tamie 12.9, Plt Count 412, MPV 10.2, Immature Gran % (Auto) 1.300 H, Neut % (Auto) 66.4, Lymph % (Auto) 16.3 L, [place] % (Auto) 14.7 H, Eos % (Auto) 0.8, Baso % (Auto) 0.5, Absolute Neuts (auto) 7.4, Absolute Lymphs (auto) 1.82, Nucleated RBC % 0, Sodium 132 L, Potassium 3.7, Chloride Direct 95 L, Carbon Dioxide 27.5, Anion Gap 10, BUN 10, Creatinine 0.9, Estim Creat Clear Calc 72.77, Est GFR (MDRD) Non-Af 77, BUN/Creatinine Ratio 11.4, Glucose 143 H, Calcium 8.5 06/28/24 06:32: POC Glucose 151 H Micro: Microbiology 06/26/24 10:30 Urine, Clean Catch Urine Culture - Preliminary Gram negative gonzalez 06/26/24 14:56 Aspirate - Abdominal Gram Stain - Final 06/26/24 14:56 Aspirate - Abdominal Wound Culture - Preliminary Gram negative gonzalez Physical Exam GI GI Narrative: Abdomen- soft, generalized discomfort to palpation. Slightly more distended. KELLY drain intact. Incisions c/d/i. Assessment & Plan Assessment/Plan (1) Acute appendicitis: QUALIFIERS: Acute appendicitis type: with localized peritonitis Appendicitis gangrene presence: without gangrene Appendicitis perforation presence: with perforation Appendicitis abscess presence: without abscess Qualified Code(s): K35.32 - Acute appendicitis with perforation, localized peritonitis, and gangrene, without abscess PLAN: I am following this patient in conjunction with Dr. Alba. She will independently evaluate this patient. Labs reviewed. WBC decreased Continue Cipro and Flagyl Give lactulose x 1 Start Flomax x 1 this morning and start regular dose at bedtime Continue Christiansen catheter Encourage ambulation and I.S. multiple times Order labs for tomorrow We will continue to monitor this patient No discharge plans for today Charges/Coding Visit Charges Inpatient E&M: 07135 Subs Hosp L1 (Post-op; no charge)
[2024-06-28 08:30] VITALS: BP 117/68; PULSE 97; RESP 18; TEMP 36.6; O2SAT 95
[2024-06-28] MEDS: hydroCHLOROthiazide 25 MG Tablet PO (08:41)
[2024-06-28] MEDS: Losartan Potassium 100 MG Tablet PO (08:41)
[2024-06-28] MEDS: Tamsulosin HCl 0.4 MG Capsule PO ×2 (08:41→16:44)
[2024-06-28] MEDS: Ciprofloxacin 400 MG/200 ML BAG 200 MG IV ×2 (08:41→21:32)
[2024-06-28] MEDS: Lactulose 20 GM/30 ML UDC 10 GM PO (09:18)
[2024-06-28 11:58] LABS: Bedside Glucose 162 mg/dL (74-106)
--- NOTE | 2024-06-28 13:54 | DCINST_ITS ---
Discharge Instructions Diet Discharge Diet: Light diet - advance as tolerated Activity Discharge Activity: May Not Drive (while taking narcotic pain medications.) May shower in (days): 1 Lifting Restrictions: no lifting >20 lbs x 2 wks, no strenuous exercise for 4 wks Dressing / Incision Call your doctor if your incision/area has: Continuous Slow Oozing, Sudden Increased Bleeding, Increased Pain/ Swelling, Increased Redness, Foul Smelling Discharge and Swelling at the incision site Call your doctor if you observe: Fever of 101 or Higher Remove Dressing in: 1 day Cleanse incision/area with: Soap & Water Additional Dressing/Incision Instructions:: Cover previous KELLY site with 4 x 4 and tape-change daily until completely healed. Steri-Strips will fall off in 7 to 10 days, if they do not fall off okay to remove after 10 days. Follow Up Care Please Follow Up With: Ingird Alba MD When: Call the office for a follow-up appointment 1 week; after 5 PM and on the weekends call [phone] with any concerns. Test Results: Test results from this visit will be discussed in further detail at your follow- up appointment, if applicable. Discharge Plan Admission Admit Date/Time: 06/28/24 11:38 Attending Provider: Ingrid Alba Primary Care Provider: Rob Mcclure Discharge Orders/Prescriptions Prescriptions: New ciprofloxacin HCl 500 mg tablet 500 mg PO BID Qty: 8 0RF metronidazole 500 mg tablet 500 mg PO TID Qty: 12 0RF Continued amlodipine 5 MG tablet 5 mg PO DAILY atorvastatin 20 mg tablet 20 mg PO QHS hydrochlorothiazide 25 mg tablet 25 mg PO DAILY losartan 100 mg tablet 100 mg PO DAILY metformin 500 mg tablet extended release 24 hr 500 mg PO BID varenicline tartrate 1 mg tablet 1 mg PO BID Referrals / Follow Up: Rob Mcclure MD [Primary Care Provider] - Disposition Disposition (needs filled in before D/C Order can be placed): Home, Self Care
[2024-06-28] MEDS: 0.9% Saline Lock 10 ML Syringe IV (15:07)
[2024-06-28 15:27] VITALS: BP 130/60; PULSE 93; RESP 20; TEMP 36.8; O2SAT 95
[2024-06-28 17:06] LABS: Bedside Glucose 138 mg/dL (74-106)
[2024-06-28 21:30] VITALS: BP 130/63; PULSE 90; RESP 20; TEMP 36.8; O2SAT 92
[2024-06-28] MEDS: Atorvastatin Calcium 20 MG Tablet PO (21:36)
[2024-06-28] MEDS: Ondansetron 4 MG/2 ML Vial IV (21:36)
[2024-06-28] MEDS: Acetaminophen 325 MG Tablet 650 MG PO (21:36)
[2024-06-28 22:00] LABS: Bedside Glucose 174 mg/dL (74-106)
[2024-06-29] MEDS: metroNIDAZOLE 500 MG/100 ML BAG 100 MG IV ×4 (00:14→21:14)
[2024-06-29 06:00] VITALS: BP 138/65; PULSE 90; RESP 18; TEMP 36.6; O2SAT 97
[2024-06-29] MEDS: Acetaminophen 325 MG Tablet 650 MG PO (06:17)
[2024-06-29 07:14] VITALS: O2SAT 97
[2024-06-29 07:19] LABS: Bedside Glucose 143 mg/dL (74-106)
[2024-06-29 08:09] VITALS: BP 132/62; PULSE 84; RESP 18; TEMP 36.6; O2SAT 95
[2024-06-29] MEDS: Losartan Potassium 100 MG Tablet PO (08:13)
[2024-06-29] MEDS: Ondansetron 4 MG/2 ML Vial IV ×2 (08:14→21:14)
[2024-06-29] MEDS: hydroCHLOROthiazide 25 MG Tablet PO (08:14)
[2024-06-29 08:35] LABS: Absolute Lymphocyte Count 1.86 X10^3/uL (0.83-4.51); Absolute Neutrophil Count 7.7 X10^3/uL (2.0-7.7); Basophil# 0.07 X10^3/uL; Basophil% 0.6 % (0-1); Eosinophil# 0.15 X10^3/uL; Eosinophils% 1.3 % (0-5); Hematocrit 30.3 % (37-47); Hemoglobin 9.8 g/dL (12.0-15.0); Lymphocyte # 1.86 X10^3/ul (0.83-4.51); Lymphocyte % 15.7 % (19-41); Mean Corp Hgb Conc 32.3 g/dL (32-36); Mean Corpuscular Hgb 28.9 pg (27.0-32.0); Mean Corpuscular Volume 89.4 fL (81-99); Monocyte# 1.65 X10^3/uL; Monocyte% 13.9 % (0-10); NRBC Flagged by Analyzer 0 % (0-5); Neutrophil # 7.71 X10^3/uL (2.7-7.7); Neutrophil % 64.8 % (47-70); POSITIVE DIFFERENTIAL YES; POSITIVE MORPHOLOGY YES; Platelet Count 410 K/mm3 (150-450); RBC Distribution Width CV 12.9 % (11.6-14.6); RBC Distribution Width SD 42.4 fl (35.1-43.9); Red Blood Count 3.39 M/mm3 (4.2-5.4); White Blood Count 11.9 K/mm3 (4.4-11.0)
[2024-06-29 08:36] LABS: Differential Indicated SCAN CRITERIA MET
[2024-06-29 09:23] LABS: Atypical Lymphocyte 1+ %
[2024-06-29 09:24] LABS: Pathologist Review May foll
[2024-06-29 09:27] LABS: Pathologist Review Reviewed
--- NOTE | 2024-06-29 09:40 | CASEMGMT ---
COSMO HILARIO Assessment: Face to Face with pt for initial transition planning/care coordination assessment. COSMO HILARIO introduced self and role at [facility], pt voices understanding and consents to assessment. Pt is A&O x4 and answers all questions appropriately at this time. Pt sitting up in chair in no distress. Care providers, pharmacy, and demographics verified/updated. Admitting Dx: acute appendicitis Strata Score: 1 PCP:Kami Specialists:Denies Preferred Pharmacy:[facility] Insurance: [place] Prescription Benefit: yes LNOK: marco Raza Living Arrangements: Pt lives alone in a single story home with 1 step to enter. Pt works liquid [employer] and is I in ADL/IADLs. Pt denies concerns at home. Transportation: Pt drives self and denies concerns with transportation. DME:Denies HHC/SNF: Denies hx of Pt states no concerns with going home at time of dc. Pt states no further concerns/needs. CM to follow. Advised pt to ask CM if any further questions/concerns/needs arise, voices understanding. Pt Goal: Home Plan: Home Carie WILBURN CM
[2024-06-29 09:54] LABS: Anion Gap 12 (5-15); BUN 13 mg/dL (4-19); Calcium 8.4 mg/dL (7.6-11.0); Carbon Dioxide 23.9 mmol/L (22.0-29.0); Chloride 90 mmol/L (96-108); Creatinine, Serum 0.96 mg/dL (0.70-1.20); EST Glomerular Filtration Rate 67 (>60); Estimated Creatinine Clearance 68.22 ml/min; Glucose 152 mg/dL (70-99); Potassium 3.5 mmol/L (3.3-5.1); Sodium Level 126 mmol/L (133-145)
--- NOTE | 2024-06-29 10:05 | PCM.PN.SRG ---
Subjective Subjective Patient seen and examined during AM rounds. She is found resting out of bed in a chair. She reports feeling generally well and denies any abdominal pain. She does state that her IV has been leaking intermittently and this was replaced overnight. She confirms an appetite and that she has been passing flatus but is yet to have a bowel movement postoperatively. She has been ambulating regularly in the halls. Objective Data Objective Data Vital Signs: Vital Signs Temp Pulse Resp BP Pulse Ox O2 Del Method O2 Flow Rate 98 F 84 18 132/62 H 95 Room Air 2 06/29/24 08:09 06/29/24 08:09 06/29/24 08:09 06/29/24 08:09 06/29/24 08:09 06/29/24 08:18 06/28/24 04:00 Oxygen Flow Rate (L/min) 2 Oxygen Delivery Method Room Air Weight: 236 lb 8.896 oz Body Mass Index (BMI) 46.2 Intake & Output: Intake and Output for Last 24 Hours 06/27/24 06/28/24 06/29/24 23:59 23:59 23:59 Intake Total 3100 / 3100 400 / 880 1380 / 1380 Output Total 4430 / 4430 2905 / 3405 1730 / 1730 Balance -1330 / -1330 -2505 / -2525 -350 / -350 Lab / Micro Data 06/29/24 07:20 06/29/24 07:20 Labs: Laboratory Results - last 24 hr 06/28/24 06:27: Diff Path Review Reviewed 06/28/24 11:29: POC Glucose 162 H 06/28/24 16:43: POC Glucose 138 H 06/28/24 21:39: POC Glucose 174 H 06/29/24 06:10: POC Glucose 143 H 06/29/24 07:20: WBC 11.9 H, RBC 3.39 L, Hgb 9.8 L, Hct 30.3 L, MCV 89.4, MCH 28.9, MCHC 32.3, RDW Std Deviation 42.4, RDW Coeff of Tamie 12.9, Plt Count 410, MPV 10.0, Immature Gran % (Auto) 3.700 H, Neut % (Auto) 64.8, Lymph % (Auto) 15.7 L, [place] % (Auto) 13.9 H, Eos % (Auto) 1.3, Baso % (Auto) 0.6, Absolute Neuts (auto) 7.7, Absolute Lymphs (auto) 1.86, Nucleated RBC % 0, Differential Comment COMMENT, Diff Path Review May foll, Atypical Lymphocytes 1+, Sodium 126 L, Potassium 3.5, Chloride Direct 90 L, Carbon Dioxide 23.9, Anion Gap 12, BUN 13, Creatinine 0.96, Estim Creat Clear Calc 68.22, Est GFR (MDRD) Non-Af 67, BUN/Creatinine Ratio 13.0, Glucose 152 H, Calcium 8.4 Micro: Microbiology 06/26/24 10:30 Urine, Clean Catch Urine Culture - Final Escherichia coli 06/26/24 14:56 Aspirate - Abdominal Gram Stain - Final 06/26/24 14:56 Aspirate - Abdominal Wound Culture - Final Escherichia coli 06/26/24 14:56 Aspirate - Abdominal Anaerobic Culture - Preliminary Physical Exam Const oriented x3 and no apparent distress Resp Resp Narrative: Mildly tachypneic after returning from a walk GI GI Narrative: Obese, soft, mildly distended, operative dressings initially still intact but beneath these patient's wounds are well-approximated and remain covered with Steri-Strips. Suprapubic drain site with serous output. Bladder / Kidney Exam: catheter in place Assessment & Plan Assessment/Plan (1) Acute appendicitis: QUALIFIERS: Acute appendicitis type: with localized peritonitis Appendicitis gangrene presence: without gangrene Appendicitis perforation presence: with perforation Appendicitis abscess presence: without abscess Qualified Code(s): K35.32 - Acute appendicitis with perforation, localized peritonitis, and gangrene, without abscess PLAN: Patient is postoperative day 3 from laparoscopic appendectomy with intraoperative finding of perforated appendicitis Labs reviewed. WBC actually increased over yesterday but patient remains afebrile and clinically stable. Continue Cipro and Flagyl Operative drain removed Follow-up intraoperative cultures. Discontinue Christiansen catheter and follow-up for spontaneous voiding Advance to regular diet and follow-up for bowel movement Encourage ambulation and I.S. multiple times Order labs for tomorrow No discharge plans for today Charges/Coding Visit Charges Inpatient E&M: 82031 [facility] L1
[2024-06-29] MEDS: Ciprofloxacin 400 MG/200 ML BAG 200 MG IV ×2 (10:07→22:39)
[2024-06-29] MEDS: Insulin Lispro 100 UNIT/ML INSULN.PEN SC ×3 (11:11→21:14)
[2024-06-29 11:48] LABS: Bedside Glucose 211 mg/dL (74-106)
[2024-06-29 14:17] VITALS: BP 133/61; PULSE 89; RESP 18; TEMP 36.7; O2SAT 95
[2024-06-29] MEDS: Tamsulosin HCl 0.4 MG Capsule PO (17:09)
[2024-06-29 17:28] LABS: Bedside Glucose 167 mg/dL (74-106)
[2024-06-29 21:00] VITALS: BP 145/55; PULSE 85; RESP 16; TEMP 36.6; O2SAT 99
[2024-06-29] MEDS: Atorvastatin Calcium 20 MG Tablet PO (21:14)
[2024-06-29] MEDS: 0.9% Saline Lock 10 ML Syringe IV (21:15)
[2024-06-29 21:50] LABS: Bedside Glucose 159 mg/dL (74-106)
[2024-06-30 02:41] VITALS: BP 126/53; PULSE 90; RESP 18; TEMP 36.6; O2SAT 95
[2024-06-30 05:36] LABS: Hematocrit 31.1 % (37-47); Hemoglobin 10.5 g/dL (12.0-15.0); Mean Corp Hgb Conc 33.8 g/dL (32-36); Mean Corpuscular Hgb 29.7 pg (27.0-32.0); Mean Corpuscular Volume 87.9 fL (81-99); Mean Platelet Vol. 9.7 fl (6.2-12.0); POSITIVE COUNT YES; POSITIVE MORPHOLOGY YES; Platelet Count 480 K/mm3 (150-450); RBC Distribution Width CV 12.5 % (11.6-14.6); RBC Distribution Width SD 40.6 fl (35.1-43.9); Red Blood Count 3.54 M/mm3 (4.2-5.4); White Blood Count 13.3 K/mm3 (4.4-11.0)
[2024-06-30 05:52] LABS: Differential Indicated MANUAL DIFF
[2024-06-30 06:01] LABS: Anion Gap 13 (5-15); BUN 15 mg/dL (4-19); BUN/Creat Ratio 15.9 RATIO (10-20); Calcium 8.7 mg/dL (7.6-11.0); Carbon Dioxide 22.8 mmol/L (22.0-29.0); Chloride 89 mmol/L (96-108); Creatinine, Serum 0.92 mg/dL (0.70-1.20); EST Glomerular Filtration Rate 71 (>60); Estimated Creatinine Clearance 71.18 ml/min; Glucose 155 mg/dL (70-99); Potassium 3.9 mmol/L (3.3-5.1); Sodium Level 125 mmol/L (133-145)
[2024-06-30] MEDS: Ondansetron 4 MG/2 ML Vial IV (06:17)
[2024-06-30] MEDS: 0.9% Saline Lock 10 ML Syringe IV (06:17)
[2024-06-30] MEDS: metroNIDAZOLE 500 MG/100 ML BAG 100 MG IV ×3 (06:18→23:18)
[2024-06-30] MEDS: Insulin Lispro 100 UNIT/ML INSULN.PEN SC ×3 (06:21→23:17)
[2024-06-30 06:39] LABS: Bedside Glucose 186 mg/dL (74-106)
[2024-06-30 06:43] LABS: Eosinophil 1 % (0-5); Lymphocyte 24 % (19-41); Metamyelocyte 4 % (0-1); Monocyte 6 % (0-10); Neutrophil-Band 1 % (0-5); Neutrophil-Segmented 64 % (47-70); Total Cells Counted 100 (MANUAL DIFF)
[2024-06-30 06:46] LABS: Absolute Neutrophil Count 8.5 X10^3/uL (2.0-7.7)
[2024-06-30 06:47] LABS: Platelet Estimate SLT INC (ADEQ)
[2024-06-30 06:49] LABS: Red Cell Morphology NORM C+C NORMAL (NORM C&C)
--- NOTE | 2024-06-30 08:15 | PN.SURG_ITS ---
Subjective Subjective Patient reports scant amount of flatus but no bowel movement. She denies nausea or vomiting. She denies abdominal pain. She says she had a rough night with restlessness and going to the bathroom a lot. Objective Data Objective Data Vital Signs: Vital Signs Temp Pulse Resp BP Pulse Ox O2 Del Method O2 Flow Rate 97.9 F 90 18 126/53 H 95 Room Air 2 06/30/24 02:41 06/30/24 02:41 06/30/24 02:41 06/30/24 02:41 06/30/24 02:41 06/30/24 07:44 06/28/24 04:00 Oxygen Flow Rate (L/min) 2 Oxygen Delivery Method Room Air Weight: 236 lb 8.896 oz Body Mass Index (BMI) 46.2 Intake & Output: Intake and Output for Last 24 Hours 06/28/24 06/29/24 06/30/24 23:59 23:59 23:59 Intake Total 400 / 880 1979 / 1979 Output Total 2905 / 3405 2530 / 2530 Balance -2505 / -2525 -550 / -550 Lab / Micro Data 06/30/24 05:00 06/30/24 05:00 Labs: Laboratory Results - last 24 hr 06/28/24 06:27: Diff Path Review Reviewed 06/29/24 07:20: WBC 11.9 H, RBC 3.39 L, Hgb 9.8 L, Hct 30.3 L, MCV 89.4, MCH 28.9, MCHC 32.3, RDW Std Deviation 42.4, RDW Coeff of Tamie 12.9, Plt Count 410, MPV 10.0, Immature Gran % (Auto) 3.700 H, Neut % (Auto) 64.8, Lymph % (Auto) 15.7 L, [place] % (Auto) 13.9 H, Eos % (Auto) 1.3, Baso % (Auto) 0.6, Absolute Neuts (auto) 7.7, Absolute Lymphs (auto) 1.86, Nucleated RBC % 0, Differential Comment COMMENT, Diff Path Review May foll, Atypical Lymphocytes 1+, Sodium 126 L, Potassium 3.5, Chloride Direct 90 L, Carbon Dioxide 23.9, Anion Gap 12, BUN 13, Creatinine 0.96, Estim Creat Clear Calc 68.22, Est GFR (MDRD) Non-Af 67, BUN/Creatinine Ratio 13.0, Glucose 152 H, Calcium 8.4 06/29/24 11:09: POC Glucose 211 H 06/29/24 17:05: POC Glucose 167 H 06/29/24 21:13: POC Glucose 159 H 06/30/24 05:00: WBC 13.3 H, RBC 3.54 L, Hgb 10.5 L, Hct 31.1 L, MCV 87.9, MCH 29.7, MCHC 33.8, RDW Std Deviation 40.6, RDW Coeff of Tamie 12.5, Plt Count 480 H, MPV 9.7, Neut % (Auto) Not Reportable, Absolute Neuts (auto) 8.5 H, Absolute Lymphs (auto) 3.20, Total Counted 100, Neutrophils % (Manual) 64, Band Neutrophils % 1, Lymphocytes % (Manual) 24, Monocytes % (Manual) 6, Eosinophils % (Manual) 1, Metamyelocytes % 4 H, Diff Path Review August, Platelet Estimate SLT INC, RBC Morphology NORM C+C, Sodium 125 L, Potassium 3.9, Chloride Direct 89 L, Carbon Dioxide 22.8, Anion Gap 13, BUN 15, Creatinine 0.92, Estim Creat Clear Calc 71.18, Est GFR (MDRD) Non-Af 71, BUN/Creatinine Ratio 15.9, Glucose 155 H, Calcium 8.7 06/30/24 06:20: POC Glucose 186 H Micro: Microbiology 06/26/24 10:30 Urine, Clean Catch Urine Culture - Final Escherichia coli 06/26/24 14:56 Aspirate - Abdominal Gram Stain - Final 06/26/24 14:56 Aspirate - Abdominal Wound Culture - Final Escherichia coli 06/26/24 14:56 Aspirate - Abdominal Anaerobic Culture - Preliminary Physical Exam Const oriented x3 and no apparent distress Resp normal respiratory effort GI soft to palpation and non-tender Assessment & Plan Assessment/Plan (1) Acute appendicitis: QUALIFIERS: Acute appendicitis type: with localized peritonitis A ppendicitis gangrene presence: without gangrene Appendicitis perforation presence: with perforation Appendicitis abscess presence: without abscess Q ualified Code(s): K35.32 - Acute appendicitis with perforation, localized peritonitis, and gangrene, without abscess PLAN: Patient had perforated appendicitis. She remains on antibiotics. Her white count did go up today. She also has more bandemia and lymphocytes. Continue to observe. Continue antibiotics. I will order a dose of MiraLAX to see if I can stimulate her bowel movements. Emile Peralta MD Pager: [facility] [address] [place] [address], [address] [place] [address] Office:
[2024-06-30 08:38] VITALS: BP 130/68; PULSE 85; RESP 16; TEMP 36.6; O2SAT 94
[2024-06-30] MEDS: Polyethylene Glycol 3350 17 GM PACKET PO (08:55)
[2024-06-30] MEDS: Losartan Potassium 100 MG Tablet PO (10:29)
[2024-06-30] MEDS: Ciprofloxacin 400 MG/200 ML BAG 200 MG IV ×2 (10:29→20:51)
[2024-06-30] MEDS: hydroCHLOROthiazide 25 MG Tablet PO (10:29)
[2024-06-30 12:15] LABS: Bedside Glucose 158 mg/dL (74-106)
[2024-06-30] MEDS: Tamsulosin HCl 0.4 MG Capsule PO (16:44)
[2024-06-30 17:04] LABS: Bedside Glucose 129 mg/dL (74-106)
[2024-06-30 17:48] VITALS: BP 152/72; PULSE 89; RESP 16; TEMP 36.3; O2SAT 97
[2024-06-30] MEDS: Atorvastatin Calcium 20 MG Tablet PO (23:20)
[2024-06-30 23:44] LABS: Bedside Glucose 161 mg/dL (74-106)
[2024-06-30 23:46] VITALS: BP 157/88; PULSE 100; RESP 16; TEMP 36.7; O2SAT 96
[2024-07-01] VITALS: O2SAT 96
[2024-07-01 05:00] VITALS: BP 111/54; PULSE 83; RESP 16; TEMP 36.7; O2SAT 96
[2024-07-01] MEDS: metroNIDAZOLE 500 MG/100 ML BAG 100 MG IV (05:42)
[2024-07-01 05:47] LABS: Hematocrit 29.3 % (37-47); Hemoglobin 9.8 g/dL (12.0-15.0); Mean Corp Hgb Conc 33.4 g/dL (32-36); Mean Corpuscular Hgb 29.5 pg (27.0-32.0); Mean Corpuscular Volume 88.3 fL (81-99); Mean Platelet Vol. 9.6 fl (6.2-12.0); POSITIVE COUNT YES; POSITIVE MORPHOLOGY YES; Platelet Count 526 K/mm3 (150-450); RBC Distribution Width CV 12.8 % (11.6-14.6); RBC Distribution Width SD 41.3 fl (35.1-43.9); Red Blood Count 3.32 M/mm3 (4.2-5.4); White Blood Count 11.6 K/mm3 (4.4-11.0)
[2024-07-01 05:59] LABS: Differential Indicated MANUAL DIFF
[2024-07-01 06:42] LABS: Anion Gap 13 (5-15); BUN 13 mg/dL (4-19); BUN/Creat Ratio 16.1 RATIO (10-20); Calcium 8.7 mg/dL (7.6-11.0); Carbon Dioxide 22.7 mmol/L (22.0-29.0); Chloride 90 mmol/L (96-108); Creatinine, Serum 0.82 mg/dL (0.70-1.20); EST Glomerular Filtration Rate 81 (>60); Estimated Creatinine Clearance 79.87 ml/min (50-250); Glucose 136 mg/dL (70-99); Potassium 3.9 mmol/L (3.3-5.1); Sodium Level 126 mmol/L (133-145)
[2024-07-01] MEDS: Insulin Lispro 100 UNIT/ML INSULN.PEN SC ×2 (06:55→11:35)
[2024-07-01 07:07] LABS: Lymphocyte 14 % (19-41); Monocyte 9 % (0-10); Myelocyte 3 % (0-0); Neutrophil-Band 17 % (0-5); Neutrophil-Segmented 56 % (47-70); Promyelocyte 1 % (0-0); Total Cells Counted 100 (MANUAL DIFF)
[2024-07-01 07:08] LABS: Differential Comment SCANNED
[2024-07-01 07:09] LABS: Absolute Neutrophil Count 8.5 X10^3/uL (2.0-7.7)
[2024-07-01 07:10] LABS: Absolute Lymphocyte Count 1.62 X10^3/uL (0.83-4.51); Platelet Estimate SLT INC (ADEQ); Toxic Granulation 1+
[2024-07-01 07:16] LABS: Bedside Glucose 154 mg/dL (74-106)
--- NOTE | 2024-07-01 07:36 | PN.SURG_ITS ---
Subjective Subjective Patient reports she is passing flatus and had 2 bowel movements. She denies nausea or vomiting. She denies abdominal pain. Objective Data Objective Data Vital Signs: Vital Signs Temp Pulse Resp BP Pulse Ox O2 Del Method O2 Flow Rate 98.0 F 83 16 111/54 L 96 Room Air 2 07/01/24 05:00 07/01/24 05:00 07/01/24 05:00 07/01/24 05:00 07/01/24 05:00 07/01/24 05:00 06/28/24 04:00 Oxygen Flow Rate (L/min) 2 Oxygen Delivery Method Room Air Weight: 236 lb 8.896 oz Body Mass Index (BMI) 46.2 Intake & Output: Intake and Output for Last 24 Hours 06/29/24 06/30/24 07/01/24 23:59 23:59 23:59 Intake Total 1979 / 1979 400 / 400 300 / 300 Output Total 2530 / 2530 Balance -550 / -550 400 / 400 300 / 300 Lab / Micro Data 07/01/24 05:01 07/01/24 05:01 Labs: Laboratory Results - last 24 hr 06/30/24 11:52: POC Glucose 158 H 06/30/24 16:42: POC Glucose 129 H 06/30/24 23:14: POC Glucose 161 H 07/01/24 05:01: WBC 11.6 H, RBC 3.32 L, Hgb 9.8 L, Hct 29.3 L, MCV 88.3, MCH 29.5, MCHC 33.4, RDW Std Deviation 41.3, RDW Coeff of Tamie 12.8, Plt Count 526 H, MPV 9.6, Neut % (Auto) Not Reportable, Absolute Neuts (auto) 8.5 H, Absolute Lymphs (auto) 1.62, Total Counted 100, Neutrophils % (Manual) 56, Band Neutrophils % 17 H, Lymphocytes % (Manual) 14 L, Monocytes % (Manual) 9, M yelocytes % 3 H, Promyelocytes % 1 H, Differential Comment SCANNED, Diff Path Review May foll, Toxic Granulation 1+, Platelet Estimate SLT INC, Sodium 126 L, Potassium 3.9, Chloride Direct 90 L, Carbon Dioxide 22.7, Anion Gap 13, BUN 13, Creatinine 0.82, Estim Creat Clear Calc 79.87, Est GFR (MDRD) Non-Af 81, BUN/Creatinine Ratio 16.1, Glucose 136 H, Calcium 8.7 07/01/24 06:53: POC Glucose 154 H Micro: Microbiology 06/26/24 14:56 Aspirate - Abdominal Gram Stain - Final 06/26/24 14:56 Aspirate - Abdominal Wound Culture - Final Escherichia coli 06/26/24 14:56 Aspirate - Abdominal Anaerobic Culture - Final Anaerobic cocci 06/26/24 10:30 Urine, Clean Catch Urine Culture - Final Escherichia coli Physical Exam Const oriented x3 and no apparent distress Resp normal respiratory effort GI soft to palpation Palpation: Negative for tender Assessment & Plan Assessment/Plan (1) Acute appendicitis: QUALIFIERS: Acute appendicitis type: with localized peritonitis A ppendicitis gangrene presence: without gangrene Appendicitis perforation presence: with perforation Appendicitis abscess presence: without abscess Q ualified Code(s): K35.32 - Acute appendicitis with perforation, localized peritonitis, and gangrene, without abscess PLAN: The patient is clinically doing well but her white count is still elevated and today she has 17 bands. I am concerned that there is something going on she is also still hyponatremic. She says she is tolerating a diet with no increase in abdominal pain but I am unsure why her white count is still elevated with bandemia which seems to be worse than yesterday. I will order a CT with p.o. and IV contrast. Emile Peralta MD Pager: [facility] [address] [place] [address], [address] [place] [address] Office:
[2024-07-01 09:18] VITALS: BP 128/58; PULSE 81; RESP 18; TEMP 36.3; O2SAT 98
[2024-07-01] MEDS: hydroCHLOROthiazide 25 MG Tablet PO (09:22)
[2024-07-01] MEDS: Losartan Potassium 100 MG Tablet PO (09:22)
[2024-07-01] MEDS: Ciprofloxacin 400 MG/200 ML BAG 200 MG IV (09:27)
--- NOTE | 2024-07-01 10:45 | CT_ITS ---
PROCEDURE: ABDOMEN/PELVIS WITH CONTRAST REASON FOR EXAM: Leukocytosis of appy TECHNIQUE: Abdomen and pelvis CT with intravenous contrast. COMPARISON: 06/26/2024. FINDINGS: Lung bases: Right lower lobe calcified granulomas Liver: Diffuse fatty infiltration. Liver is enlarged Gallbladder: Unremarkable. Spleen: Normal size. Punctate calcifications Pancreas: Normal size without evidence of mass surrounding inflammation or ductal dilation. Adrenals: Unremarkable. Kidneys: Prominent extrarenal pelvises. Symmetric in size. Bladder: Unremarkable. Reproductive Organs: Unremarkable. Bowel: Unremarkable. Appendix: S/p appendectomy inflammatory changes with fat stranding noted about the cecum and ileum with no abscess.. Lymph nodes: No suspicious lymph node enlargement. Vasculature: Mild diffuse atherosclerotic calcifications are noted. Peritoneum / Retroperitoneum: No ascites. No free air. Bones: Unremarkable. CT/Abdomen/Pelvis WITH Contrast IMPRESSION: 1. Status post appendectomy with inflammatory changes about the cecum and ileu m with no focal abscess. 2. Hepatic steatosis and hepatomegaly 3. Granulomatous disease One or more dose reduction techniques were used (e.g., Automated exposure contr ol, adjustment of the mA and/or kV according to patient size, use of iterative reconstruction technique). Reading Location: [facility]
[2024-07-01 11:32] VITALS: BP 138/65; PULSE 85; RESP 16; TEMP 36.9; O2SAT 95
[2024-07-01 11:49] LABS: Bedside Glucose 162 mg/dL (74-106)
--- NOTE | 2024-07-01 12:33 | DS.PCM_ITS ---
Providers Date of Admission: 06/28/24 Primary Care Physician: Dr. Rob Mcclure MD Reason For Visit: ACUTE APPENDICITIS Diagnosis Discharge Diagnosis (1) Acute appendicitis: Status: Acute Code(s): K35.80 - Unspecified acute appendicitis Qualifiers: Acute appendicitis type: with localized peritonitis Appendicitis gangrene presence: without gangrene Appendicitis perforation presence: with perforation Appendicitis abscess presence: without abscess Qualified Code(s): K35.32 - Acute appendicitis with perforation, localized peritonitis, and gangrene, without abscess Plan: The patient is clinically doing well but her white count is still elevated and today she has 17 bands. I am concerned that there is something going on she is also still hyponatremic. She says she is tolerating a diet with no increase in abdominal pain but I am unsure why her white count is still elevated with bandemia which seems to be worse than yesterday. I will order a CT with p.o. and IV contrast. Emile Peralta MD Pager: [facility] [address] [place] [address], [address] [place] [address] Office: Medications at Discharge Home Medications amlodipine 5 mg tablet 5 mg PO DAILY 06/02/17 atorvastatin 20 mg tablet 20 mg PO QHS cholesterol 06/26/24 hydrochlorothiazide 25 mg tablet 25 mg PO DAILY 06/26/24 losartan 100 mg tablet 100 mg PO DAILY 06/26/24 metformin 500 mg tablet,extended release 24 hr 500 mg PO BID 06/26/24 varenicline tartrate 1 mg tablet 1 mg PO BID 06/26/24 ciprofloxacin HCl 500 mg tablet 500 mg PO BID #8 tabs 06/28/24 metronidazole 500 mg tablet 500 mg PO TID #12 tabs 06/28/24 Hospital Course Operations appendectomy Summary of Care Provided Hospital Course: Pt admitted for appendicitis. Surgery revealed perforated appendicitis and cultures were taken and a drain was placed. Several days later she was tolerating a diet. She was given miralax and had two bowel movements. She had elevated white count on the day of discharge so a CT was performed that did not show any sign of leak or abscess. Weight / BMI Weight Weight: 236 lb 8.896 oz Body Mass Index (BMI) 46.2 ABG / Lab / Microbiology Data 07/01/24 05:01 07/01/24 05:01 Laboratory: Laboratory Results - last 24 hr 06/30/24 16:42: POC Glucose 129 H 06/30/24 23:14: POC Glucose 161 H 07/01/24 05:01: WBC 11.6 H, RBC 3.32 L, Hgb 9.8 L, Hct 29.3 L, MCV 88.3, MCH 29.5, MCHC 33.4, RDW Std Deviation 41.3, RDW Coeff of Tamie 12.8, Plt Count 526 H, MPV 9.6, Neut % (Auto) Not Reportable, Absolute Neuts (auto) 8.5 H, Absolute Lymphs (auto) 1.62, Total Counted 100, Neutrophils % (Manual) 56, Band Neutrophils % 17 H, Lymphocytes % (Manual) 14 L, Monocytes % (Manual) 9, M yelocytes % 3 H, Promyelocytes % 1 H, Differential Comment SCANNED, Diff Path Review May foll, Toxic Granulation 1+, Platelet Estimate SLT INC, Sodium 126 L, Potassium 3.9, Chloride Direct 90 L, Carbon Dioxide 22.7, Anion Gap 13, BUN 13, Creatinine 0.82, Estim Creat Clear Calc 79.87, Est GFR (MDRD) Non-Af 81, BUN/Creatinine Ratio 16.1, Glucose 136 H, Calcium 8.7 07/01/24 06:53: POC Glucose 154 H 07/01/24 11:04: POC Glucose 162 H Microbiology: Microbiology 06/26/24 14:56 Aspirate - Abdominal Gram Stain - Final 06/26/24 14:56 Aspirate - Abdominal Wound Culture - Final Escherichia coli 06/26/24 14:56 Aspirate - Abdominal Anaerobic Culture - Final Anaerobic cocci 06/26/24 10:30 Urine, Clean Catch Urine Culture - Final Escherichia coli Radiography Diagnostic Testing: Radiology Impression Abdomen/Pelvis CT 07/01/24 10:45 IMPRESSION: 1. Status post appendectomy with inflammatory changes about the cecum and ileum with no focal abscess. 2. Hepatic steatosis and hepatomegaly 3. Granulomatous disease One or more dose reduction techniques were used (e.g., Automated exposure control, adjustment of the mA and/or kV according to patient size, use of iterative reconstruction technique). Reading Location: [facility] D/C Instructions Discharge Diet: Light diet - advance as tolerated May shower in (days): 1 Lifting Restrictions: 15 lbs for 2 weeks Call your doctor if your incision/area has: Continuous Slow Oozing, Sudden Increased Bleeding, Increased Pain/ Swelling, Increased Redness, Foul Smelling Discharge and Swelling at the incision site Call your doctor if you observe: Fever of 101 or Higher Cleanse incision/area with: Soap & Water Additional Dressing/Incision Instructions: Cover previous KELLY site with 4 x 4 and tape-change daily until completely healed. Steri-Strips will fall off in 7 to 10 days, if they do not fall off okay to remove after 10 days. DC O2, CPAP, BIPAP Needs Home O2 Discharge instructions: No Please Follow Up With: Ingrid Alba MD When: Call the office for a follow-up appointment 1 week; after 5 PM and on the weekends call [phone] with any concerns. Meaningful Use Info Meaningful Use Meaningful Use Diagnoses (Choose all that apply): None applicable Ischemic Stroke Statin Dosing Therapy Reference: STATIN DOSE THERAPY REFERENCE: * Patients > 75 years receive moderate or high dose statin therapy. * Patients 75 years or YOUNGER should receive HIGH intensity statin dose unless contraindicated. You will be required to document reason for non-treatment if statin daily dose does not meet guidelines. HIGH DOSE STATIN THERAPY DAILY Atorvastatin > than or = to 40 mg Rosuvastatin > than or = to 20 mg Amlodipine + Atorvastatin > than or = to 2.5/40 mg Ezetimibe + Simvastatin 10/80 mg Simvastatin 80mg Discharge Plan Admission Admit Date/Time: 06/28/24 11:38 Attending Provider: Ingrid Alba Primary Care Provider: Rob Mcclure Discharge Orders/Prescriptions Prescriptions: New ciprofloxacin HCl 500 mg tablet 500 mg PO BID Qty: 8 0RF metronidazole 500 mg tablet 500 mg PO TID Qty: 12 0RF Continued amlodipine 5 MG tablet 5 mg PO DAILY atorvastatin 20 mg tablet 20 mg PO QHS hydrochlorothiazide 25 mg tablet 25 mg PO DAILY losartan 100 mg tablet 100 mg PO DAILY metformin 500 mg tablet extended release 24 hr 500 mg PO BID varenicline tartrate 1 mg tablet 1 mg PO BID Referrals / Follow Up: Rob Mcclure MD [Primary Care Provider] - Disposition Disposition (needs filled in before D/C Order can be placed): Home, Self Care
[2024-07-01 14:02] VITALS: BP 119/62; PULSE 92; RESP 18; TEMP 36.8; O2SAT 95
[2024-07-04 13:52] LABS: Pathologist Review Reviewed
[2024-07-09 12:01] LABS: Pathologist Review Reviewed
== END 2024-07-01 15:12 | disposition home or self-care (01) | DRG 398 ==
LOC: ED 13:47 → ACINP 13:47 → MS3 17:06
PROVIDERS: Physician Assistant; Surgery; Admitting Provider Surgery; Emergency Provider Emergency Medicine; PCP Family Medicine; Visit Provider Surgery
PROC: 0DTJ4ZZ Resection of Appendix, Percutaneous Endoscopic Approach (ICD-10-PCS; CPT 44970; principal; 2024-06-26 16:00)
DX: K35.33 Acute appendicitis with perforation, localized peritonitis, and gangrene, with abscess (principal); Z68.42 Body mass index [BMI] 45.0-49.9, adult; E87.0 Hyperosmolality and hypernatremia; R16.0 Hepatomegaly, not elsewhere classified; E11.9 Type 2 diabetes mellitus without complications; D72.825 Bandemia; E66.01 Morbid (severe) obesity due to excess calories; I10 Essential (primary) hypertension; K76.0 Fatty (change of) liver, not elsewhere classified; F17.210 Nicotine dependence, cigarettes, uncomplicated; L92.9 Granulomatous disorder of the skin and subcutaneous tissue, unspecified; N99.89 Other postprocedural complications and disorders of genitourinary system; Z79.899 Other long term (current) drug therapy; Z79.84 Long term (current) use of oral hypoglycemic drugs; Z88.6 Allergy status to analgesic agent; Z88.1 Allergy status to other antibiotic agents; R00.0 Tachycardia, unspecified; R32 Unspecified urinary incontinence; R45.1 Restlessness and agitation
CPT/HCPCS: 36415; 51702; 74177; 80048; 80053; 81001; 82962; 83735; 84100; 85025; 86140; 87070; 87075; 87077; 87086; 87088; 87186; 87205; 88304; 94640; 94668; 99283; 99406; Q9967; A4216; J0744; J2405